=== PATIENT | male | born 1950 | race Caucasian/White ===

== ENCOUNTER 2017-06-02 19:07 | Emergency (ER) | payer MEDICARE, OTHER, SELFPAY ==
[2017-06-02 19:08] VITALS: BP 95/66; PULSE 70; RESP 17; TEMP 36.1; O2SAT 95; BMI 27.6
[2017-06-02 19:26] VITALS: BP 110/70; PULSE 82; RESP 14; O2SAT 99
--- NOTE | 2017-06-02 19:50 | CT_ITS ---
STUDY: CT ABDOMEN AND PELVIS WITHOUT CONTRAST REASON FOR EXAM: Male, 66 years old. Right abdominal pain RADIATION DOSAGE (If Supplied By Facility): CTDIvol = ( 10.24 ) mGy, DLP = ( 593.77 ) mGycm TECHNIQUE: Transaxial images were obtained from the lower chest to the upper thighs without oral contrast, and without intravenous contrast. Sagittal and coronal images were reconstructed. Individualized dose optimization techniques were used for this CT. COMPARISON: None. FINDINGS: There is minimal dependent atelectasis in both lung bases. There is no pleural effusion. The heart is normal in size. The liver is unremarkable. There are faint calcifications in the lumen of the gallbladder as well as a few round air foci in the lumen of the gallbladder. The spleen is unremarkable. The pancreas is unremarkable. The adrenal glands are unremarkable. The right kidney is unremarkable. There is no dilatation of the collecting system in the right kidney. The left kidney is unremarkable. There is no dilatation of the collecting system in the left kidney. The stomach is unremarkable. The small bowel is unremarkable. There are diverticula in the distal colon without adjacent stranding. The appendix is visualized and appears normal. There are minimal scattered vascular calcifications. The IVC is unremarkable. The retroperitoneum is unremarkable. There is no free fluid in the abdomen. There is a 3 cm cystic mass in the left pelvis adjacent to the bladder, probable diverticulum. The prostate is normal in size with coarse calcifications. The soft tissues are unremarkable. There are mild degenerative changes in the visualized spine. CT/Abdomen/Pelvis without Cont IMPRESSION: There are gallstones in the lumen of the gallbladder. There is no evidence of gallbladder wall thickening or surrounding inflammation by CT. There is mild diverticulosis of the distal colon. There are no acute bowel abnormalities. There is no ascites or significant lymphadenopathy. Electronically Signed: Oma Ludwig MD at 21:31 EST Tel Direct: [phone], Service support ,
[2017-06-02 20:03] LABS: Absolute Lymphocyte Count 2.75 X10^3/ul (0.83-4.51); Absolute Neutrophil Count 5.2 X10^3/uL (2.0-7.7); Basophil# 0.01 X10^3/uL; Basophil% 0.1 % (0-1); Eosinophil# 0.05 X10^3/uL; Eosinophils% 0.6 % (0-5); Hematocrit 49.3 % (40-54); Hemoglobin 17.1 g/dl (13.0-16.5); Lymphocyte # 2.75 X10^3/ul (4.0); Lymphocyte % 30.7 % (19-41); Mean Corp Hgb Conc 34.7 g/gl (32-36); Mean Corpuscular Hgb 30.2 pg (27.0-32.0); Mean Corpuscular Volume 87.1 fL (80-94); Monocyte# 0.94 X10^3/uL; Monocyte% 10.5 % (0-10); Neutrophil # 5.18 X10^3/uL (2.7-7.7); Neutrophil % 57.9 % (47-70); Platelet Count 235 K/mm3 (150-450); RBC Distribution Width CV 13.4 % (11.6-14.6); RBC Distribution Width SD 42.4 fl (35.1-43.9); Red Blood Count 5.66 M/mm3 (4.6-6.2)
[2017-06-02 20:04] LABS: POSITIVE COUNT NO; POSITIVE DIFFERENTIAL NO; POSITIVE MORPHOLOGY NO
[2017-06-02] MEDS: HYDROmorphone 1 MG/ML Syringe 0.5 MG IV ×2 (20:06→22:23)
[2017-06-02] MEDS: 0.9% Normal Saline 1,000 ML 150 ML IV (20:06)
[2017-06-02] MEDS: Ondansetron 4 MG/2 ML Vial IV ×2 (20:06→22:23)
[2017-06-02 20:16] LABS: AST(SGOT) 22 U/L (15-37); Alanine Aminotransfer ALT/SGPT 38 U/L (16-61); Alkaline Phosphatase 75 U/L (45-117); Anion Gap 9 (5-15); BUN 15 mg/dL (7-18); BUN/Creat Ratio 15.9 RATIO (10-20); Bilirubin, Direct 0.29 mg/dL (0.00-0.30); Calcium,Total 9.3 mg/dL (8.5-10.1); Chloride 103 mmol/L (98-107); Creatinine, Serum 0.94 mg/dL (0.70-1.30); EST Glomerular Filtration Rate 84 mL/min (>60); Est Glom Filt Rate - Afr Amer 102 mL/min (>60); Estimated Creatinine Clearance 89.89 ml/min; Globulin 3.4 g/dL (2.2-4.2); Glucose 141 mg/dL (74-106); Lipase 189 U/L (73-393); Potassium 3.9 mmol/L (3.5-5.1); Protein, Total 7.4 g/dL (6.4-8.2); Sodium Level 139 mmol/L (136-145)
[2017-06-02 21:03] LABS: Bacteria 0 SEEN /hpf (None Seen); Mucous, Urine 0 SEEN /hpf (<or=2+); Red Blood Cells-Urine 0 SEEN /hpf (0-5); Squamous Epithelial Cells - UA 0 SEEN /hpf (0-5)
[2017-06-02 21:07] LABS: Color, Urine Yellow (Yellow); Glucose, Dipstick Normal (Normal); Ketone-Dipstick 50 mg/dl (Negative); Leukocyte Esterase-Dipstick Negative /ul (Negative); Nitrite-Dipstick Negative (Negative); Occult Blood-Urine Negative /ul (Negative); Protein-Dipstick Negative (Negative); Specific Gravity, Urine 1.015 (1.002-1.030); Urine Bilirubin Dipstick Negative (Negative); Urine Clarity Clear (Clear); Urine Urobilinogen Normal (Normal)
[2017-06-02 21:14] LABS: White Blood Cells 0-5 SEEN /hpf (0-5)
--- NOTE | 2017-06-02 21:45 | US_ITS ---
STUDY: ABDOMINAL ULTRASOUND - RIGHT UPPER QUADRANT REASON FOR VISIT: Male, 66 years old. Right upper quadrant pain TECHNIQUE: Transverse and longitudinal imaging of the right upper quadrant was performed using real-time ultrasound. COMPARISON: CT abdomen and pelvis from the same day FINDINGS: Liver: The liver measures 15 cm. There is normal echogenicity of the liver. The direction of portal flow is hepatopetal. There is no demonstrated mass in the liver. Gallbladder: The gallbladder is normal in size. The gallbladder wall measures 2-3 mm. There is a negative sonographic Brooks's sign. There is no demonstrated pericholecystic fluid. There are numerous echogenic foci in the lumen of the gallbladder with posterior shadowing. Common Bile Duct (C.B.D.): The common bile duct measures 5.5 mm. Pancreas: The visualized pancreas is within normal limits. There is no demonstrated mass in the pancreas. Right Kidney: The right kidney measures 10.0 cm. The right cortex measures 1.5 cm. There is no demonstrated mass in the right kidney. There is no dilatation of the collecting system. There is no demonstrated free fluid. US/Gallbladder IMPRESSION: There are gallstones in the lumen of the gallbladder. The wall is not significantly thickened. There is no pericholecystic fluid. There is no biliary ductal dilatation. Electronically Signed: Oma Ludwig MD at 23:27 EST Tel Direct: [phone], Service support ,
[2017-06-02 21:54] VITALS: BP 105/70; PULSE 80; RESP 14; O2SAT 99
[2017-06-02 22:33] VITALS: BP 110/75; PULSE 85; RESP 14; O2SAT 98
--- NOTE | 2017-06-02 23:45 | ED.VISSUMM ---
- ER Visit Summary Date of Service: 06/02/17 Chief Complaint: Back pain and abdominal pain History of Present Illness: The patient is a 66 M who reportedly developed right-sided back pain while driving home from work. He ate a hamburger on arrival at home and worsened pain into the right upper quadrant. He does report some mild nausea. He denies history of kidney stones. He has had no difficulty with urinating. He denies chest pain or shortness of breath. Physical Examination: Vital signs are unremarkable. Patient has no fever. Patient is in no acute distress does appear uncomfortable. Head and neck examination is normal. Heart is regular rate and rhythm. Palpable pulses are noted throughout. Lungs are clear with good air movement throughout. Abdomen is soft with tenderness in the right upper quadrant. There is no guarding or rebound. Hypoactive bowel sounds are noted. Patient does have right CVA tenderness. Extremity examination is unremarkable with full range of motion. Neurologic examination reveals no focal deficits. Test Results: CBC reveals hemoglobin concentrated at 17.1. Chemistry studies are unremarkable. LFTs are significant only for total bili of 1.8. Lipase is normal. Urinalysis shows 50 ketones, but no sign of hematuria or infection. CT flank reveals evidence of gallstones. Mild diverticulosis is noted. Right upper quadrant ultrasound reveals gallstones in the lumen of the gallbladder. The wall is not thickened and there is no pericholecystic fluid or ductal dilatation. Emergency Department Course and Treatment: Patient was treated with Dilaudid, Zofran, and IV fluids. Test results were discussed with patient and at bedside. Patient is advised to follow bland diet. He will be given a short course [place] for home. He is to follow with his primary care physician for further testing including possible HIDA scan. Treatment Plan: [] Disposition: Discharge Impression: Right upper quadrant abdominal pain This note was generated with [employer] dictation software. It may contain incorrect words, spelling, and punctuation that were not noted in review of the chart prior to signing ED Disposition - Plan for ED Patient: Disposition: Home or Assisted Living Chief Complaint: Back Instructions: ED Abdominal Pain Unkn Cause Male Prescriptions: Hydrocodone Bitart/Apap 5-325 [[place] 5/325] 1 - 2 tablet PO Q6H PRN PRN 2 Days #12 tablet PRN Reason: Pain Referrals: Anastasia Hsu MD [Primary Care Provider] - 3-5 Days
--- NOTE | 2017-06-02 23:48 | DCINST.ED_ITS ---
ED Disposition - Plan for ED Patient: Disposition: Home or Assisted Living Chief Complaint: Back Instructions: ED Abdominal Pain Unkn Cause Male Prescriptions: Hydrocodone Bitart/Apap 5-325 [[place] 5/325] 1 - 2 tablet PO Q6H PRN PRN 2 Days # 12 tablet PRN Reason: Pain Referrals: Anastasia Hsu MD [Primary Care Provider] - 3-5 Days
[2017-06-03] MEDS: HYDROcodone Bitartrate/Apap 5/325 Tablet PO (00:03)
[2017-06-03 00:13] VITALS: BP 133/67; PULSE 69; RESP 16; O2SAT 100
== END 2017-06-03 00:14 | disposition home or self-care (01) ==
PROVIDERS: Emergency Provider Emergency Medicine; Family Provider Internal Medicine; PCP Internal Medicine
DX: R10.11 Right upper quadrant pain (principal); K80.20 Calculus of gallbladder without cholecystitis without obstruction; K57.90 Diverticulosis of intestine, part unspecified, without perforation or abscess without bleeding; R11.0 Nausea
CPT/HCPCS: 74176; 76705; 80048; 80076; 81001; 83690; 85025; 96361; 96374; 96375; 96376; 99283; J7030; A4216; J2405

== ENCOUNTER → 2017-06-13 11:30 | Outpatient (CLI) | payer MEDICARE, OTHER, SELFPAY ==
--- NOTE | 2017-06-13 11:34 | NM_ITS ---
CLINICAL: 66-year-old male with history of right upper quadrant abdominal pain and cholelithiasis. RADIONUCLIDE HEPATOBILIARY SCINTIGRAPHY COMPARISON: Abdominal ultrasound and CT of the abdomen-pelvis reports 06/02/2017 FINDINGS: Following the intravenous administration of 5.3 mCi of 99m Tc Mebrofenin, hepatobiliary images reveal: 1. Relatively prompt and homogeneous radiopharmaceutical concentration is noted by a normal sized liver. No parenchymal defects are identified. 2. Gallbladder activity is not identified during 60 minutes of sequential imaging. Gallbladder activity is identified at 120 minutes post radiopharmaceutical provision which correlates with the anatomic positioning of the gallbladder on review of coronal reconstructions of CT of the abdomen and pelvis dated 06/02/2017. 3. Small intestinal tract is observed at 30 minutes post radiopharmaceutical administration. 4. Washout of the radiopharmaceutical by the hepatic parenchyma appears qualitatively normal. NM/Hepatobilliary Imaging IMPRESSION: 1. Nonvisualization of the gallbladder at 60 minutes post-radiopharmaceutical administration with visualization noted at 120 minutes post tracer provision is most consistent with a component of chronic cholecystitis in patients who have fasted for more than 4 and less than 24 hours, with an intermediate to high pretest probability of hepatobiliary illness and retained normal hepatocellular function. (Rox and Riya Robles, J Nucl Med 21: P17, 1980). Electronically Signed: Bernabe Ferraro DO at 14:11 EST Tel , Service support ,
== END ==
PROVIDERS: Family Provider Internal Medicine; PCP Internal Medicine; Visit Provider Internal Medicine
DX: K80.20 Calculus of gallbladder without cholecystitis without obstruction (principal); R10.11 Right upper quadrant pain
CPT/HCPCS: 78226; A9537

== ENCOUNTER 2017-06-25 17:17 | Inpatient (IN) | payer MEDICARE, OTHER, SELFPAY ==
[2017-06-25] VITALS (9 sets, daily range): BP systolic 93–137; BP diastolic 61–80; PULSE 65–95; RESP 14–16; TEMP 36.1–36.6; O2SAT 93–97; BMI 26.4; BMI 26.5; BMI 27.4
--- NOTE | 2017-06-25 12:04 | EKG12_ITS ---
Test Reason : PRE OP Blood Pressure : / mmHG Vent. Rate : 063 BPM Atrial Rate : 063 BPM P-R Int : 190 ms QRS Dur : 096 ms QT Int : 400 ms P-R-T Axes : 038 041 028 degrees QTc Int : 409 ms Sinus rhythm with occasional Premature ventricular complexes Otherwise normal ECG No previous ECGs available Confirmed by JEMIMA DE LA GARZA, KAYCEE ([id number]), assistant film editor RAKAN MERAZ ([id number]) on 06/27/2017 3:28:09 PM Referred By: Dinesh Vanegas Confirmed By:KAYCEE ONOFRE MD
--- NOTE | 2017-06-25 14:05 | GALL_PTH ---
PATIENT: SABINO MENDOZA Jr. LOC: [facility]3 U#:[id number] AGE/SX: 66/M ROOM: [facility]316 RE06/26/[address]: Dr. Sabino Vanegas MD : [id number] BED: 1 DIS: 06/28/2017 SPEC #: [id number] RECD: 06/26/17 08:36 STATUS: BIJAL ZAPATA #: [id number] KARLEE: 06/25/17 14:[address]: Sabino Vanegas DEPT: SURGICAL PATHOLOGY RECD BY: Vasyl Delcid ENTERED: 06/26/17 09:02 SP TYPE: GALLBLLORI CHAPA DR: MD Dr. Ventura Mata MD Chitra Ganta, MD Tissues: Gallbladder, NOS Procedures: Surgery Specimen Level III HEADER OPERATION: Laparoscopic cholecystectomy with IOC PRE-OP DIAGNOSIS: Chronic cholecystitis with calculus TISSUE SUBMITTED: Gallbladder MICROSCOPIC DIAGNOSIS Gallbladder, cholecystectomy: Acute and chronic cholecystitis. AM:katja 06/27/17 MICROSCOPIC DESCRIPTION Slides are reviewed. GROSS DESCRIPTION Received is one container labeled with the patient's name and designated gallbladder. The specimen consists of a previously opened distorted gallbladder. The specimen measures 7 x 4 x 1.5 cm. The serosal surface is congested and hemorrhagic. No obvious cystic duct is identified. The identified portion of the lumen shows mucosal surface without any mass lesion. No stones are identified. No bile is identified. Sections of gallbladder wall reveals congested and hemorrhagic cut surfaces. Also present in the container are multiple fragments of detached pieces of hemorrhagic tissue measuring in aggregate 3 x 3 x 1 cm. The gallbladder wall measures up to 1.5 cm in thickness. Mobile Development Manager sections are submitted in three cassettes. / SJ:katja 06/26/17 TC:2 CPT: 14124
--- NOTE | 2017-06-25 14:14 | PCM.DC.GS ---
Discharge Diet: Light diet - advance as tolerated - if you have questions about your diet instructions, please talk to you doctor. Discharge Activity: May Not Drive - for 1 week or while taking narcotic pain medicine. May shower in (days): 1 Lifting Restrictions: 10 pounds Call your doctor if your incision/area has: Continuous Slow Oozing, Sudden Increased Bleeding, Increased Pain/ Swelling, Increased Redness, Foul Smelling Discharge Call your doctor if you observe: Fever of 101 or Higher Suture Line Care: Avoid Pulling/Pushing, Avoid Pinching/Bending Additional Dressing/Incision Instructions:: Change or remove dressing in 2 days. Leave steri-strips in place for 1 week. Empty, measure and record ISABEL output. Please cleanse the drain site daily with a qtip and peroxide and apply dry gauze and tape Allergies/Adverse Reactions: Allergies No Known Allergies Allergy (Verified 06/24/17 09:34) Medications to take at Discharge Hydrocodone Bitart/Apap 5-325 [[place] 5/325] 1 - 2 tab PO Q6H PRN PRN 2 Days #12 tab 06/02/17 ascorbic acid (vitamin C) 500 mg tablet 1 g PO QDAY tab 06/23/17 calcium phosphate 250 mg-vitamin D3 400 unit chewable tablet 1 tab PO QDAY 06/23/17 naproxen sodium 220 mg capsule 220 mg PO .prn PRN cap 06/23/17 Primary Care Physician: Anastasia Hsu MD [Primary Care Provider] - Please Follow Up With: Dinesh Vanegas MD - [phone] When: Call to make an appointment to be seen on Friday
[2017-06-25] MEDS: Cefazolin 2 GM in 0.9% Normal Saline 100 ML IV (14:21)
[2017-06-25] MEDS: Bupivacaine Mpf 0.5% 30 ML VIAL (17:10)
--- NOTE | 2017-06-25 17:29 | OP.PCM_ITS ---
Problem List (1) Chronic cholecystitis with calculus Status: Acute Report of Operation Date of Procedure: 06/25/17 Pre-Operative Diagnosis: Chronic cholecystitis cholelithiasis Post-Operative Diagnosis: Severe chronic cholecystitis cholelithiasis Surgery/Procedure Performed:: Laparoscopic cholecystectomy with drainage and fenestration Description of Surgical Findings:: Timeout and informed consent was obtained. 66-year-old gentleman was taken to the operating room. He was placed supine on the table. He underwent general endotracheal intubation anesthesia. Ancef 2 g are given intravenously preoperatively. The abdomen was sterilely prepped and draped. 0.5% Marcaine was used as local anesthetic. Throughout the procedure total 30 cc was used. Skin sites were pre-anesthetized. A vertical incision was made in the inferior portion of the umbilicus was inserted after holding sutures of 0 Vicryl placed. The abdomen was insufflated CO2 to a pressure of 10 mmHg pressure. 12 m trocar inserted. 10 lap scope inserted. No evidence of any trocar injuries. The mid and lower abdomen was not remarkable. The upper abdomen demonstrated thick cake of omentum completely obstructing view to the gallbladder. Five- minute trochars are placed in the epigastric mid abdomen right upper quadrant and additional trocar throughout the case was placed in the right upper quadrant. The omentum was tediously dissected free in part from the gallbladder leaving a portion and tach. Hemostasis obtained with electrocautery. The gallbladder was extraordinarily thick walled and tense. Attempt was made to aspirate the gallbladder. No fluid could be obtained. Initially the omentum was dissected free the infundibular area could not be cleanly identified and so then I approached the gallbladder and a dome down technique even this was extraordinarily difficult. I used hook cautery to dissect the dome of the gallbladder. Immediately got into the gallbladder. The posterior wall the gallbladder was densely adherent to the liver. I remove stones in place that in retrieval athletics. I finally was able to dissect free the posterior wall of the gallbladder continuing down toward the infundibular area. Throughout hemostasis obtained with electrocautery and hemoclips were indicated. I finally then was able to completely open the gallbladder I used a stone forceps to remove all of the stones I was looking at the base the gallbladder was no stones spillage and there was no retrograde flow of bile. I still however could not clearly identify ductal structures and so I elected not to perform any type of ligation or stapling of the base of the gallbladder. I excised as much of the gallbladder and a subtotal technique as possible. I then saw the cystic artery and secured that with Hem-o-jazmin clips. A few metal clips were needed. I used electrocautery to cauterize the edge of the markedly thickened gallbladder wall and used cautery to cauterize what I could of the mucosa remaining within the gallbladder. Having achieved that then placed the gallbladder remnants in retrieval bag. The right upper quadrant was copiously irrigated and aspirated free of fluid. The liver bed was inspected it was noted to be hemostatic. The subtotal cholecystectomy was noted to be hemostatic. I trimmed a 15 round ISABEL drain to length and then placed it through the epigastric port and exited through the right upper quadrant port. I placed the drain to the subhepatic space. I secured the drain with interrupted 3-0 nylon. The gallbladder was then removed through the umbilicus fascial enlargement was required. The remaining trochars removed and visualization. Hemostasis was intact. The abdomen was allowed to deflate of CO2. The fascia in the umbilicus approximated with 2 [id number] sutures of 0 Vicryl. Skin edges approximated up to 4 Monocryl subdermal stitches. Steri-Strips Telfa and OpSite dressings applied. Sponge instrument and needle counts were reported the surgeon be correct. Blood loss was approximately 200 cc. He tolerated procedure well was taken to recovery area in satisfactory condition. This was technically an extraordinarily difficult procedure excess time of surgery that required 2-1/2 hours. Dinesh Vanegas M.D., F.A.C.S. Type of Anesthesia:: General Anesthesiologist: Simon Veliz
[2017-06-25] MEDS: Lactated Ringers 1,000 ML 80 ML IV (18:58)
[2017-06-25] MEDS: HYDROcodone Bitartrate/Apap 5/325 Tablet PO (20:51)
[2017-06-25] MEDS: Cefazolin 1 GM/50 ML BAG IV (23:00)
[2017-06-26] MEDS: LORazepam 2 MG/ML Syringe 0.5 MG IV (00:03)
--- NOTE | 2017-06-26 02:26 | NURSING ---
Pt had an episode where he was found by AURELIANO Keene walking in the hallway pulling IV pole with blood from IV spotting the floor. Taken back to room. This RN notified. Assessed ISABEL drain, small amount of tubing pulled out. IV site leaking fluid, flushed and applied new tegederm.
[2017-06-26 03:36] VITALS: BP 147/94; PULSE 96; RESP 14; TEMP 36.6; O2SAT 93
--- NOTE | 2017-06-26 06:05 | PCM.PN.SRG ---
Subjective: Pt painful RUQ and epigastrium No flatus - Physical Exam General: Alert Abdomen: Bowel Sounds Not Present, Distended, Tender, - - ISABEL active bloody drainage Vital Signs Temp Pulse Resp BP Pulse Ox 97.9 F 96 14 147/94 H 93 06/26/17 03:36 06/26/17 03:36 06/26/17 03:36 06/26/17 03:36 06/26/17 03:36 Oxygen Delivery Method Room Air Weight: 219 lb 12.814 oz Body Mass Index (BMI) 27.4 Intake and Output for Last 24 Hours 06/24/17 06/25/17 06/26/17 23:59 23:59 23:59 Intake Total 1800 / 1800 639 / 639 Output Total 60 / 60 200 / 200 Balance 1740 / 1740 439 / 439 Assessment/Plan Difficult to determine if bile in the ISABEL but I am suspicious it is Await labs but will consult Dr Mccurdy. I have already spoken with him yesterday about the potential
[2017-06-26] MEDS: Acetaminophen/Codeine #3 Tablet PO (06:27)
[2017-06-26] MEDS: Cefazolin 1 GM/50 ML BAG IV (06:28)
[2017-06-26] MEDS: Lactated Ringers 1,000 ML 80 ML IV (06:28)
[2017-06-26 06:53] LABS: Absolute Lymphocyte Count 0.88 X10^3/ul (0.83-4.51); Absolute Neutrophil Count 10.1 X10^3/uL (2.0-7.7); Hematocrit 45.4 % (40-54); Hemoglobin 15.7 g/dl (13.0-16.5); Lymphocyte # 0.88 X10^3/ul (4.0); Lymphocyte % 7.4 % (19-41); Mean Corp Hgb Conc 34.6 g/gl (32-36); Mean Corpuscular Volume 86.8 fL (80-94); Mean Platelet Vol. 8.7 fl (6.2-12.0); Monocyte# 0.93 X10^3/uL; Monocyte% 7.8 % (0-10); Neutrophil # 10.09 X10^3/uL (2.7-7.7); Neutrophil % 84.6 % (47-70); Platelet Count 317 K/mm3 (150-450); RBC Distribution Width CV 12.9 % (11.6-14.6); RBC Distribution Width SD 40.8 fl (35.1-43.9); Red Blood Count 5.23 M/mm3 (4.6-6.2); White Blood Count 11.9 K/mm3 (4.4-11.0)
[2017-06-26 06:54] LABS: POSITIVE COUNT NO; POSITIVE DIFFERENTIAL NO; POSITIVE MORPHOLOGY NO
[2017-06-26 07:23] LABS: AST(SGOT) 79 U/L (15-37); Alanine Aminotransfer ALT/SGPT 91 U/L (16-61); Albumin, Serum 3.4 g/dL (3.2-5.0); Alkaline Phosphatase 121 U/L (45-117); Bilirubin, Direct 0.47 mg/dL (0.00-0.30); Globulin 3.3 g/dL (2.2-4.2); Protein, Total 6.7 g/dL (6.4-8.2)
--- NOTE | 2017-06-26 08:08 | NM_ITS ---
CLINICAL: 66-year-old male with history of recent cholecystectomy with postoperative pain and suspected bile leak. RADIONUCLIDE HEPATOBILIARY SCINTIGRAPHY COMPARISON: CT of the abdomen-pelvis 06/13/2017, previous Tc mebrofenin hepatobiliary scintigraphy study dated 06/13/2017 FINDINGS: Following the intravenous administration of 6.0 mCi of 99m Tc Mebrofenin, hepatobiliary images reveal: 1. Relatively prompt and homogeneous radiopharmaceutical concentration is noted by a normal sized liver. No parenchymal defects are identified. 2. There is activity identified in the region of the gallbladder fossa at approximately 33-34 minutes post tracer injection. 3. Small intestinal tract is observed at 22 minutes post radiopharmaceutical administration. 4. Washout of the radiopharmaceutical by the hepatic parenchyma appears qualitatively delayed. NM/Hepatobilliary Imaging IMPRESSION: 1. There is visualization of the gallbladder fossa consistent with bile leak. 2. 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 3. Overall compared to the previous Tc mebrofenin hepatobiliary imaging study dated 06/13/2017, there is interim development of hepatocellular-polygonal cell dysfunction and an apparent bile leak into the gallbladder fossa status post interval cholecystectomy. N.B. : Dr. Dinesh Vanegas, Covering Physician, confirmed on 06/26/2017 13:11:48 (ET) that the referring physician received the results and did not require a verbal consultation. Electronically Signed: Bernabe Ferraro DO at 12:33 EST Tel , Service support , N.B. : Dr. Dinesh Vanegas, Covering Physician, confirmed on 06/26/2017 13:11:48 (ET) that the referring physician received the results and did not require a verbal consultation.
[2017-06-26 09:36] VITALS: BP 127/83; PULSE 92; RESP 14; TEMP 36.9; O2SAT 94
--- NOTE | 2017-06-26 11:03 | PCA ---
pt off floor
--- NOTE | 2017-06-26 11:29 | NURSING ---
1025-pt off unit via bed for hida scan
[2017-06-26] MEDS: Tamsulosin HCl 0.4 MG Capsule PO ×2 (13:00→18:12)
--- NOTE | 2017-06-26 14:10 | PCM.CONS.B ---
- Consult Date of Consult: 06/26/17 Reason for consultation: Patient has a cystic duct leak The patient is a [the 66] year old [male] who I have been asked to consult. This is a 66-year-old male who reports abdominal pain about 4 weeks ago. Tenured pain and discomfort he was seen by his family doctor previously had a CAT scan and ultrasound which showed gallstones. The patient had a HIDA scan which apparently showed chronic cholecystitis. Seen by Dr. Puente and recommended surgery. He underwent surgery yesterday and had a significantly chronically inflamed gallbladder anatomy was not visible open procedure. Today the patient underwent a HIDA scan which showed extravasation of the stent with a bile duct leak. Had some abdominal pain but otherwise is feeling better no fever chills or night sweats. Not smoke or drink he has been in relatively good health over the years. Otherwise patient denies any heart disease chest pains review of systems is noted with a meal with no other complaints. Allergies: Allergies No Known Allergies Allergy (Verified 06/24/17 09:34) Medications: Medications Added to Medication List This Visit Category Date Time Status Enoxaparin [Lovenox] Med 06/26/17 10:00 Active 40 mg SC DAILY@1000 Ensure Enlive Med 06/26/17 10:00 Active 120 ml PO 4X/DAY Tamsulosin HCl [Flomax] Med 06/26/17 17:30 Active 0.4 mg PO DAILY@1730 PMH: He denies hypertension or diabetes PSH: Recent laparoscopic cholecystectomy Social: No smoke or drink ROS: As noted in the HPI Vital Signs Height 6 ft 3 in Weight: 99.7 kg Weight in Pounds 219.8 lbs Pulse Ox 94 Temperature 98.5 F Pulse Rate 92 Respiratory Rate 14 Blood Pressure 127/83 Blood Pressure Position Semi-Fowlers Vitals: HEENT anicteric sclera conjunctiva pink NECK: Supple HEART: S1-S2 no murmur LUNGS: Equal breath sounds bilaterally ABDOMEN: Slight distention decreased bowel sounds tenderness on palpation EXTER: No edema Neuro: Alert and oriented no deficits Impression: This is a 66-year-old male with chronic cholecystitis and significant inflammation in the gallbladder fossa open procedure was performed yesterday P ART of the gallbladder removed. HIDA scan showing a cystic duct leak. Slight elevation of liver enzymes post surgery she will undergo an ERCP tomorrow sphincterotomy and stent insertion been explained in detail to the patient and his this afternoon agreeable to the plan
[2017-06-26 15:00] VITALS: BP 150/83; PULSE 64; RESP 16; TEMP 36.8; O2SAT 93
[2017-06-26] MEDS: Enoxaparin 40 MG/0.4 ML Syringe SC (15:23)
[2017-06-26 20:20] VITALS: BP 129/75; PULSE 93; RESP 16; TEMP 37.2; O2SAT 97
[2017-06-26] MEDS: Dextrose 5%-Lactated Ringers 1,000 ML 150 ML IV (20:20)
[2017-06-26] MEDS: 0.9% NaCl Peripheral Flush Adult/Peds IV (22:25)
[2017-06-27] VITALS (7 sets, daily range): BP systolic 95–120; BP diastolic 63–81; PULSE 89–124; RESP 16–18; TEMP 36.7–37.2; O2SAT 92–95; BMI 27.4
[2017-06-27] MEDS: Dextrose 5%-Lactated Ringers 1,000 ML 150 ML IV ×4 (00:15→17:08)
[2017-06-27] MEDS: LORazepam 2 MG/ML Syringe 0.5 MG IV (02:33)
[2017-06-27] MEDS: 0.9% NaCl Peripheral Flush Adult/Peds IV ×3 (02:34→20:24)
--- NOTE | 2017-06-27 05:40 | PCM.PN.SRG ---
Subjective: Hida scan c/w bile leak from GB fenestration ISABEL has decreased flow - Physical Exam Abdomen: Soft, Non Tender Vital Signs Temp Pulse Resp BP Pulse Ox 98.8 F 89 16 120/81 H 94 06/27/17 02:20 06/27/17 02:20 06/27/17 02:20 06/27/17 02:20 06/27/17 02:20 Oxygen Delivery Method Room Air Weight: 219 lb 12.814 oz Body Mass Index (BMI) 27.4 Intake and Output for Last 24 Hours 06/25/17 06/26/17 06/27/17 23:59 23:59 23:59 Intake Total 1800 / 1800 2470 / 2470 1261 / 1261 Output Total 60 / 60 2977 / 2977 717 / 717 Balance 1740 / 1740 -507 / -507 544 / 544 Microbiology Past 72 Hours 06/25/17 17:15 Gram Stain - Final Tissue - Aerobic & Anaerobic Swabs Wound Culture - Preliminary No growth aerobically. Laboratory Tests Past 24 Hrs 06/26/17 06/26/17 06:40 06:40 WBC 11.9 H RBC 5.23 Hgb 15.7 Hct 45.4 MCV 86.8 MCH 30.0 MCHC 34.6 RDW 12.9 RDW Differential 40.8 Plt Count 317 MPV 8.7 Immature Gran % (Auto) 0.200 Neut % (Auto) 84.6 H Lymph % (Auto) 7.4 L [place] % (Auto) 7.8 Eos % (Auto) 0.0 Baso % (Auto) 0.0 Absolute Neuts (auto) 10.1 H Absolute Lymphs (auto) 0.88 Total Counted Not Reportable Total Bilirubin 2.80 H Direct Bilirubin 0.47 H AST 79 H ALT 91 H Alkaline Phosphatase 121 H Total Protein 6.7 Albumin 3.4 Globulin 3.3 Assessment/Plan I suspect the ISABEL is no longer placed subhepatically because drainage has decreased Bile leak anticipated b/o type of procedure performed with fenestration of the GB and no ligation Pt for ERCP today
[2017-06-27 06:47] LABS: Absolute Lymphocyte Count 1.19 X10^3/ul (0.83-4.51); Absolute Neutrophil Count 5.6 X10^3/uL (2.0-7.7); Basophil# 0.01 X10^3/uL; Basophil% 0.1 % (0-1); Eosinophil# 0.04 X10^3/uL; Eosinophils% 0.5 % (0-5); Hematocrit 42.1 % (40-54); Hemoglobin 14.2 g/dl (13.0-16.5); Lymphocyte # 1.19 X10^3/ul (4.0); Lymphocyte % 15.9 % (19-41); Mean Corp Hgb Conc 33.7 g/gl (32-36); Mean Corpuscular Hgb 29.5 pg (27.0-32.0); Mean Corpuscular Volume 87.5 fL (80-94); Mean Platelet Vol. 8.9 fl (6.2-12.0); Monocyte# 0.67 X10^3/uL; Neutrophil # 5.55 X10^3/uL (2.7-7.7); Neutrophil % 74.4 % (47-70); Platelet Count 245 K/mm3 (150-450); RBC Distribution Width CV 13.2 % (11.6-14.6); RBC Distribution Width SD 41.8 fl (35.1-43.9); Red Blood Count 4.81 M/mm3 (4.6-6.2); White Blood Count 7.5 K/mm3 (4.4-11.0)
[2017-06-27 06:50] LABS: POSITIVE COUNT NO; POSITIVE DIFFERENTIAL NO; POSITIVE MORPHOLOGY NO
[2017-06-27 07:06] LABS: AST(SGOT) 92 U/L (15-37); Alanine Aminotransfer ALT/SGPT 115 U/L (16-61); Alkaline Phosphatase 131 U/L (45-117); Globulin 2.9 g/dL (2.2-4.2); Protein, Total 5.9 g/dL (6.4-8.2)
--- NOTE | 2017-06-27 11:25 | CASEMGMT ---
RN OSVALDO Face to Face with patient for initial transition planning/care coordination assessment. RN CM introduced self and role at [facility]. Patient lying in bed, alert and oriented. Patient willing to participate in assessment and is able to answer all questions appropriately. Care providers, pharmacy, and demographics verified. See link attached. Patient wishes to discharge home, denies need for home health at this time. Patient states he has no further needs or concerns at this time. CM to follow for discharge planning needs that may arise. Disposition Plan: Patient to discharge home with family support and follow-up plans in place.
--- NOTE | 2017-06-27 14:25 | NURSING ---
Report called to Perla in AC.
--- NOTE | 2017-06-27 14:26 | NURSING ---
Pt. off the floor for ERCP.
--- NOTE | 2017-06-27 16:08 | RAD_ITS ---
STUDY: ERCP CHOLANGIOGRAM. REASON FOR EXAM: Male, 66 years old. Gallbladder disease. FLUOROSCOPY TIME (if supplied): (153.6) minutes/seconds TECHNIQUE: 5 fluoroscopic views. COMPARISON: None. FINDINGS: ERCP canalization of the common bile duct. Contrast filling demonstrates a normal common duct, common hepatic duct and intrahepatic branches without a filling defect. RAD/O.R. Fluoro for C-Arm IMPRESSION: Normal ERCP cholangiogram. Electronically Signed: Evy Alexander MD at 17:47 EST , Service support ,
--- NOTE | 2017-06-27 16:08 | RAD_ITS ---
STUDY: ERCP CHOLANGIOGRAM. REASON FOR EXAM: Male, 66 years old. Gallbladder disease. FLUOROSCOPY TIME (if supplied): (153.6) minutes/seconds TECHNIQUE: 5 fluoroscopic views. COMPARISON: None. FINDINGS: ERCP canalization of the common bile duct. Contrast filling demonstrates a normal common duct, common hepatic duct and intrahepatic branches without a filling defect. RAD/ERCP Biliary Only IMPRESSION: Normal ERCP cholangiogram. Electronically Signed: Evy Alexander MD at 17:47 EST , Service support ,
--- NOTE | 2017-06-27 16:50 | PCM.CONS.B ---
- Consult Date of Consult: 06/27/17 - Reason for Consult Preop diagnosis: Patient with bile duct leak Postop diagnosis: ERCP with sphincterotomy and insertion of a 10/7 stent Anesthesia: General anesthesia Instrument: Olympus duodenoscope Informed consent was taken prior to procedure. The patient was brought to the operating room suite[ he] was [employer]. . Anesthesia provided general anesthesia. The scope was passed under direct visualization down into the esophagus. The scope was advanced into the stomach is bile in the stomach the scope was advanced to the second portion of the duodenum where the major ampulla was identified. Using a sphincterotome and a guidewire under fluoroscopy the wire was placed initially into the pancreatic duct. No contrast was injected. Under fluoroscopy the wire was then pushed up into the common bile duct contrast was injected there was immediate filling of the common bile duct. There appeared to be some extravasation in the area of the cystic duct. The patient was grounded and a small sphincterotomy was performed. The sphincterotome was withdrawn off of the guidewire a 10/7 stent was placed over the guidewire and under fluoroscopy was placed up into the common bile duct. There was immediate drainage of a large amount of bile there are even some small stones draining. At this point under fluoroscopy the stent was in acceptable position just below the cystic duct. Impression: Probable cystic duct leak status post sphincterotomy and insertion of a 10/7 stent Plan: Leave stent in place for approximately 8 weeks repeat cholangiogram at that time. Cc copy Dr. Dinesh Vanegas CC Dr. Hsu
[2017-06-27] MEDS: Tamsulosin HCl 0.4 MG Capsule PO (18:01)
--- NOTE | 2017-06-27 18:48 | PN.SURG_ITS ---
Subjective: Successful ERCP - Physical Exam Vital Signs Temp Pulse Resp BP Pulse Ox 98.0 F 103 H 16 95/67 92 06/27/17 17:40 06/27/17 17:40 06/27/17 17:40 06/27/17 17:40 06/27/17 17:40 Oxygen Delivery Method Room Air Weight: 219 lb 12.814 oz Body Mass Index (BMI) 27.4 Intake and Output for Last 24 Hours 06/25/17 06/26/17 06/27/17 23:59 23:59 23:59 Intake Total 1800 / 1800 2470 / 2470 3909 / 3909 Output Total 60 / 60 2977 / 2977 1335 / 1335 Balance 1740 / 1740 -507 / -507 2574 / 2574 Microbiology Past 72 Hours 06/25/17 17:15 Gram Stain - Final Tissue - Aerobic & Anaerobic Swabs Wound Culture - Preliminary No growth-Final to follow Anaerobic Culture - Preliminary No growth in 48 hours. Laboratory Tests Past 24 Hrs 06/27/17 06/27/17 05:55 05:55 WBC 7.5 RBC 4.81 Hgb 14.2 Hct 42.1 MCV 87.5 MCH 29.5 MCHC 33.7 RDW 13.2 RDW Differential 41.8 Plt Count 245 MPV 8.9 Immature Gran % (Auto) 0.100 Neut % (Auto) 74.4 H Lymph % (Auto) 15.9 L Stephenson % (Auto) 9.0 Eos % (Auto) 0.5 Baso % (Auto) 0.1 Absolute Neuts (auto) 5.6 Absolute Lymphs (auto) 1.19 Total Counted Not Reportable Total Bilirubin 2.80 H Direct Bilirubin 0.50 H AST 92 H ALT 115 H Alkaline Phosphatase 131 H Total Protein 5.9 L Albumin 3.0 L Globulin 2.9 Assessment/Plan Hopeful discharge tomorrow
[2017-06-28 02:57] VITALS: BP 107/62; PULSE 86; RESP 16; TEMP 36.8; O2SAT 95
[2017-06-28] MEDS: Acetaminophen/Codeine #3 Tablet PO ×2 (03:07→12:18)
[2017-06-28 09:58] VITALS: BP 121/78; PULSE 85; RESP 18; TEMP 36.7; O2SAT 95
--- NOTE | 2017-06-28 10:34 | PCM.PN.SRG ---
Subjective: Tolerating p.o. no nausea or vomiting Objective: Abdomen is soft dressings are dry minimal ISABEL output all serous in nature - Physical Exam Vital Signs Temp Pulse Resp BP Pulse Ox 98.1 F 85 18 121/78 H 95 06/28/17 09:58 06/28/17 09:58 06/28/17 09:58 06/28/17 09:58 06/28/17 09:58 Oxygen Delivery Method Room Air Weight: 219 lb 12.814 oz Body Mass Index (BMI) 27.4 Intake and Output for Last 24 Hours 06/26/17 06/27/17 06/28/17 23:59 23:59 23:59 Intake Total 2470 / 2470 4444 / 4444 200 / 200 Output Total 2977 / 2977 2262 / 2262 309 / 309 Balance -507 / -507 2182 / 2182 -109 / -109 Microbiology Past 72 Hours 06/25/17 17:15 Gram Stain - Final Tissue - Aerobic & Anaerobic Swabs Wound Culture - Preliminary No growth-Final to follow Anaerobic Culture - Preliminary No growth in 48 hours. Assessment/Plan We will discharge the patient home today. Patient will follow up with Dr. Puente on Friday for drain removal.
--- NOTE | 2017-06-28 10:35 | PCM.DC.GB ---
Discharge Diet: Light diet - advance as tolerated - if you have questions about your diet instructions, please talk to you doctor. Discharge Activity: May Not Drive - for 1 week or while taking narcotic pain medicine. May shower in (days): 1 Additional Activity Instructions:: Pain medication may cause nausea. You should typically eat light foods as you take your pain medications. Pain medication may also cause constipation. If this is a problem for you, please discuss with your doctor. Call your doctor if your incision/area has: Continuous Slow Oozing, Sudden Increased Bleeding, Increased Pain/ Swelling, Increased Redness, Foul Smelling Discharge Call your doctor if you observe: Fever of 101 or Higher Suture Line Care: Avoid Pulling/Pushing, Avoid Pinching/Bending Additional Dressing/Incision Instructions:: Change or remove dressing in 2 days. Leave steri-strips in place for 1 week. Empty, measure and record ISABEL output. Please cleanse the drain site daily with a qtip and peroxide and apply dry gauze and tape Allergies/Adverse Reactions: Allergies No Known Allergies Allergy (Verified 06/24/17 09:34) Medications to take at Discharge Hydrocodone Bitart/Apap 5-325 [[place] 5/325] 1 - 2 tab PO Q6H PRN PRN 2 Days #12 tab 06/02/17 ascorbic acid (vitamin C) 500 mg tablet 1 g PO QDAY tab 06/23/17 calcium phosphate 250 mg-vitamin D3 400 unit chewable tablet 1 tab PO QDAY 06/23/17 naproxen sodium 220 mg capsule 220 mg PO .prn PRN cap 06/23/17 Hydrocodone Bitart/Apap 5-325 [[place] 5MG-325MG] 1 tablet PO Q6H PRN PRN 4 Days #10 tablet 06/27/17 The following prescriptions were given: Hydrocodone Bitart/Apap 5-325 [[place] 5MG-325MG] 1 tablet PO Q6H PRN PRN 4 Days #10 tablet PRN Reason: Pain Primary Care Physician: Anastasia Hsu MD [Primary Care Provider] - Please Follow Up With: Jerardo Foy MD - Please call [phone] to schedule an appointment. When: 7 days after your surgery.
[2017-06-28 12:51] VITALS: BP 105/53; PULSE 89; RESP 18; TEMP 36.8; O2SAT 95
== END 2017-06-28 13:06 | disposition home or self-care (01) | DRG 357 ==
LOC: SDC 06-26 06:04
PROVIDERS: Internal Medicine Gastroenterology; Admitting Provider Surgery; Family Provider Internal Medicine; PCP Internal Medicine; Visit Provider Surgery
PROC: (CPT 47610; principal; 2017-06-25 13:45)
PROC: 0F798DZ Dilation of Common Bile Duct with Intraluminal Device, Via Natural or Artificial Opening Endoscopic (ICD-10-PCS; CPT 43260; principal; 2017-06-27 15:00)
DX: K91.89 Other postprocedural complications and disorders of digestive system (principal); K80.10 Calculus of gallbladder with chronic cholecystitis without obstruction
CPT/HCPCS: 36415; 74328; 76000; 78226; 80076; 85025; 87070; 87075; 87205; 88304; 93005; 97802; A9537; J3010; J7120; A4216; J1610

== ENCOUNTER → 2017-07-17 15:11 | Outpatient (CLI) | payer MEDICARE, OTHER, SELFPAY ==
[2017-07-17 17:49] LABS: Absolute Lymphocyte Count 1.53 X10^3/ul (0.83-4.51); Basophil# 0.01 X10^3/uL; Basophil% 0.2 % (0-1); Hematocrit 46.3 % (40-54); Hemoglobin 15.7 g/dl (13.0-16.5); Lymphocyte # 1.53 X10^3/ul (4.0); Lymphocyte % 29.9 % (19-41); Mean Corp Hgb Conc 33.9 g/gl (32-36); Mean Corpuscular Hgb 29.7 pg (27.0-32.0); Mean Corpuscular Volume 87.7 fL (80-94); Monocyte# 0.46 X10^3/uL; Neutrophil % 58.7 % (47-70); Platelet Count 283 K/mm3 (150-450); RBC Distribution Width CV 14.3 % (11.6-14.6); RBC Distribution Width SD 45.7 fl (35.1-43.9); Red Blood Count 5.28 M/mm3 (4.6-6.2); White Blood Count 5.1 K/mm3 (4.4-11.0)
[2017-07-17 18:07] LABS: POSITIVE COUNT NO; POSITIVE DIFFERENTIAL NO; POSITIVE MORPHOLOGY NO
[2017-07-17 18:14] LABS: ALB/GLOB Ratio 1.3 RATIO (0.9-2.4); AST(SGOT) 26 U/L (15-37); Alanine Aminotransfer ALT/SGPT 38 U/L (16-61); Alkaline Phosphatase 85 U/L (45-117); Anion Gap 7 (5-15); BUN 15 mg/dL (7-18); BUN/Creat Ratio 20.5 RATIO (10-20); Calcium,Total 9.3 mg/dL (8.5-10.1); Chloride 105 mmol/L (98-107); Cholesterol 216 mg/dL (200); Creatinine, Serum 0.73 mg/dL (0.70-1.30); EST Glomerular Filtration Rate 113 mL/min (>60); Est Glom Filt Rate - Afr Amer 136 mL/min (>60); Globulin 3.1 g/dL (2.2-4.2); Glucose 89 mg/dL (74-106); High Density Lipoprotein 49 mg/dL; Potassium 3.7 mmol/L (3.5-5.1); Protein, Total 7.1 g/dL (6.4-8.2); Sodium Level 141 mmol/L (136-145); Triglycerides 153 mg/dL; Very Low Density Lipoprotein 31 mg/dL (5-40)
== END ==
PROVIDERS: Family Provider Family Medicine; PCP Family Medicine; Visit Provider Family Medicine
DX: K81.0 Acute cholecystitis (principal); E78.5 Hyperlipidemia, unspecified
CPT/HCPCS: 36415; 80053; 80061; 85025

== ENCOUNTER → 2017-07-25 10:12 | Outpatient (CLI) | payer MEDICARE, OTHER, SELFPAY ==
[2017-07-25 13:02] LABS: AST(SGOT) 29 U/L (15-37); Alanine Aminotransfer ALT/SGPT 38 U/L (16-61); Alkaline Phosphatase 83 U/L (45-117); Bilirubin, Direct 0.26 mg/dL (0.00-0.30); Globulin 3.3 g/dL (2.2-4.2); Protein, Total 7.3 g/dL (6.4-8.2)
== END ==
PROVIDERS: Family Provider Family Medicine; PCP Family Medicine; Visit Provider Family Medicine
DX: R17 Unspecified jaundice (principal)
CPT/HCPCS: 36415; 80076

== ENCOUNTER → 2017-08-27 10:26 | Outpatient (CLI) | payer MEDICARE, OTHER, SELFPAY ==
--- NOTE | 2017-08-27 10:31 | RAD_ITS ---
STUDY: X-RAY - ABDOMEN/PELVIS REASON FOR EXAM: Male, 66 years old. GB REMOVED X1 MONTH AGO WITH CBD STENT PLACED, STENT PLACEMENT CHECK, RUQ TENDERNESS PER PT TECHNIQUE: AP supine and upright views of the abdomen and pelvis. COMPARISON: None. FINDINGS: Normal visualized lung bases. Biliary stent noted. There is a moderate amount of colonic fecal material. There is scoliosis of the lumbar spine. There is no demonstrated free abdominal air. The visualized liver, spleen and kidneys are grossly normal in size and morphology. Normal soft tissue structures. Normal visualized osseous structures. RAD/Abd Inc Decub and/or Erect IMPRESSION: Biliary stent noted. This is in the right upper quadrant. Constipation Electronically Signed: Gurmeet De Luna MD at 16:52 EDT , Service support ,
[2017-08-27 12:37] LABS: AST(SGOT) 20 U/L (15-37); Alanine Aminotransfer ALT/SGPT 29 U/L (16-61); Albumin, Serum 3.8 g/dL (3.2-5.0); Alkaline Phosphatase 86 U/L (45-117); Bilirubin, Direct 0.31 mg/dL (0.00-0.30); Globulin 3.4 g/dL (2.2-4.2); Lipase 591 U/L (73-393); Protein, Total 7.2 g/dL (6.4-8.2)
== END ==
PROVIDERS: Family Provider Family Medicine; PCP Family Medicine; Visit Provider Internal Medicine Gastroenterology
DX: R10.9 Unspecified abdominal pain (principal); Z90.49 Acquired absence of other specified parts of digestive tract
CPT/HCPCS: 36415; 74019; 80076; 83690

== ENCOUNTER → 2017-09-02 07:23 | Outpatient (CLI) | payer MEDICARE, OTHER, SELFPAY ==
--- NOTE | 2017-09-02 07:25 | CT_ITS ---
STUDY: CT ABDOMEN AND PELVIS WITH CONTRAST REASON FOR EXAM: Male, 66 years old. Right-sided abdominal pain. Possible pancreatitis. RADIATION DOSAGE (If Supplied By Facility): CTDIvol = ( 18.19 ) mGy, DLP = ( 1336.65 ) mGycm TECHNIQUE: Transaxial images were obtained from the dome of the diaphragm to the symphysis pubis with oral contrast. 100 ml of Isovue 300 contrast was administered. Sagittal and coronal images were reconstructed. Individualized dose optimization techniques were used for this CT. COMPARISON: Comparison is made with prior study dated June 02, 2017. FINDINGS: Stable mild degree of increased markings at the lung bases suggestive of either atelectasis and/or scarring. The visualized portions of the heart are within normal limits. There is decreased attenuation of the liver consistent with steatosis. There are surgical clips in the gallbladder fossa consistent with a prior cholecystectomy. A stent is seen in the common bile duct with the distal tip in the second portion of the duodenum. There is evidence of circumferential wall thickening of the distal portion of the stomach and duodenal bulb. I also suspect a duodenal diverticulum. Increased markings in the surrounding peritoneal fat. An inflammatory process should be ruled out. Normal spleen. There is diffuse atrophy of the pancreas. Normal bilateral adrenal glands. Normal right kidney. Normal left kidney. Normal visualized stomach. Normal small intestine. There are multiple colonic diverticula consistent with diverticulosis. The appendix is visualized and appears normal. Normal abdominal aorta. Normal inferior vena cava. Normal retroperitoneum. Stable 3 cm cystic mass in the left side of the pelvis. This most likely low-density urinary bladder diverticulum. There are prostatic calcifications. Normal abdominal wall. There are degenerative changes of the visualized lumbar spine. CT/Abdomen/Pelvis WITH Contrast IMPRESSION: Status post cholecystectomy. A biliary stent is seen in the common bile duct. There is wall thickening of the distal stomach and first portion of the duodenum with increased markings in the surrounding peritoneal fat. An inflammatory process should be ruled out. Electronically Signed: Garth Lynch MD at 8:25 EDT Tel [phone], Service support ,
[2017-09-02 07:50] LABS: CREATININE FINGERSTICK < 0.6 mg/dL (0.70-1.30); EGFR FINGERSTICK > 60.0000 mL/min (>60)
== END ==
PROVIDERS: Family Provider Family Medicine; PCP Family Medicine; Visit Provider Internal Medicine Gastroenterology
DX: K85.90 Acute pancreatitis without necrosis or infection, unspecified (principal)
CPT/HCPCS: 74177; Q9967

== ENCOUNTER → 2017-10-28 15:21 | Outpatient (CLI) | payer MEDICARE, OTHER, SELFPAY ==
[2017-10-28 17:55] LABS: AST(SGOT) 26 U/L (15-37); Alanine Aminotransfer ALT/SGPT 33 U/L (16-61); Albumin, Serum 3.8 g/dL (3.2-5.0); Alkaline Phosphatase 72 U/L (45-117); Bilirubin, Direct 0.24 mg/dL (0.00-0.30); PSA,Total - Annual Screen 1.45 ng/mL (0.00-4.00); Protein, Total 6.8 g/dL (6.4-8.2)
== END ==
PROVIDERS: Family Provider Family Medicine; PCP Family Medicine; Visit Provider Family Medicine
DX: R17 Unspecified jaundice (principal); Z12.5 Encounter for screening for malignant neoplasm of prostate
CPT/HCPCS: 36415; 80076; 84153; G0103

== ENCOUNTER → 2017-10-31 09:49 | Outpatient (CLI) | payer MEDICARE, OTHER, SELFPAY ==
--- NOTE | 2017-10-31 09:55 | US_ITS ---
STUDY: ULTRASOUND - URINARY BLADDER REASON FOR EXAM: Male, 67 years old. Incomplete bladder emptying. TECHNIQUE: Ultrasound evaluation of the urinary bladder was performed with real-time and static jackson-scale imaging. COMPARISON: None. FINDINGS: There is no right UVJ calculus. There is a visualized right ureteral jet. There is no left UVJ calculus. There is a visualized left ureteral jet. The distended volume of the urinary bladder is 202.9 ml. The empty volume of the urinary bladder is 60.1 ml. The bladder wall is within normal limits. The bladder wall measures 4.0. There is evidence of a left bladder diverticulum measuring 3.5 cm x 2.2 sides by 3.2 cm. There is no demonstrated bladder wall mass lesion. There are no demonstrated bladder calculi. US/Post Void Residual Bladder IMPRESSION: Small post void residual. Left bladder diverticulum measuring 3.5 cm x 3.2 cm x 3.2 cm. Electronically Signed: Garth Lynch MD at 14:31 EDT Tel [phone], Service support ,
== END ==
PROVIDERS: Family Provider Family Medicine; PCP Family Medicine; Visit Provider Family Medicine
DX: R33.9 Retention of urine, unspecified (principal)
CPT/HCPCS: 51798

== ENCOUNTER → 2018-04-23 09:27 | Outpatient (CLI) | payer MEDICARE, OTHER, SELFPAY ==
[2018-04-23 12:24] LABS: AST(SGOT) 20 U/L (15-37); Alanine Aminotransfer ALT/SGPT 31 U/L (16-61); Albumin, Serum 4.2 g/dL (3.2-5.0); Alkaline Phosphatase 93 U/L (45-117); Bilirubin, Direct 0.35 mg/dL (0.00-0.30); Globulin 2.8 g/dL (2.2-4.2)
== END ==
PROVIDERS: Family Provider Family Medicine; PCP Family Medicine; Visit Provider Family Medicine
DX: R30.0 Dysuria (principal); R17 Unspecified jaundice; E78.5 Hyperlipidemia, unspecified; Z12.5 Encounter for screening for malignant neoplasm of prostate
CPT/HCPCS: 36415; 80076; 87077; 87086; 87088

== ENCOUNTER → 2018-12-10 12:36 | Outpatient (CLI) | payer MEDICARE, OTHER, SELFPAY ==
[2018-12-10 13:51] LABS: Absolute Lymphocyte Count 1.96 X10^3/uL (0.83-4.51); Absolute Neutrophil Count 3.7 X10^3/uL (2.0-7.7); Basophil# 0.02 X10^3/uL; Basophil% 0.3 % (0-1); Eosinophil# 0.07 X10^3/uL; Eosinophils% 1.1 % (0-5); Hematocrit 47.1 % (40-54); Hemoglobin 15.6 g/dL (13.0-16.5); Lymphocyte # 1.96 X10^3/ul (4.0); Lymphocyte % 30.7 % (19-41); Mean Corp Hgb Conc 33.1 g/dL (32-36); Mean Corpuscular Hgb 29.3 pg (27.0-32.0); Mean Corpuscular Volume 88.4 fL (80-94); Mean Platelet Vol. 8.7 fl (6.2-12.0); Monocyte# 0.58 X10^3/uL; Monocyte% 9.1 % (0-10); NRBC Flagged by Analyzer 0 % (0-5); Neutrophil # 3.72 X10^3/uL (2.7-7.7); Neutrophil % 58.3 % (47-70); Platelet Count 199 K/mm3 (150-450); RBC Distribution Width CV 13.5 % (11.6-14.6); RBC Distribution Width SD 43.3 fl (35.1-43.9); Red Blood Count 5.33 M/mm3 (4.6-6.2); White Blood Count 6.4 K/mm3 (4.4-11.0)
[2018-12-10 14:10] LABS: AST(SGOT) 19 U/L (15-37); Alanine Aminotransfer ALT/SGPT 34 U/L (16-61); Albumin, Serum 3.9 g/dL (3.2-5.0); Alkaline Phosphatase 78 U/L (45-117); Bilirubin, Direct 0.29 mg/dL (0.00-0.30); Cholesterol 178 mg/dL (200); High Density Lipoprotein 45 mg/dL; PSA,Total - Annual Screen 1.41 ng/mL (0.00-4.00); Protein, Total 6.9 g/dL (6.4-8.2); Triglycerides 123 mg/dL; Very Low Density Lipoprotein 25 mg/dL (5-40)
== END ==
PROVIDERS: Family Provider Family Medicine; PCP Family Medicine; Referring Provider Family Medicine; Visit Provider Family Medicine
DX: Z00.00 Encounter for general adult medical examination without abnormal findings (principal); E78.5 Hyperlipidemia, unspecified; R17 Unspecified jaundice; Z12.5 Encounter for screening for malignant neoplasm of prostate
CPT/HCPCS: 36415; 80061; 80076; 84153; 85025; G0103

== ENCOUNTER → 2018-12-23 11:33 | Outpatient (CLI) | payer MEDICARE, OTHER, SELFPAY ==
[2018-12-23 14:11] LABS: Absolute Lymphocyte Count 1.72 X10^3/uL (0.83-4.51); Absolute Neutrophil Count 4.4 X10^3/uL (2.0-7.7); Basophil# 0.01 X10^3/uL; Basophil% 0.1 % (0-1); Eosinophil# 0.07 X10^3/uL; Hematocrit 47.4 % (40-54); Hemoglobin 16.1 g/dL (13.0-16.5); Lymphocyte # 1.72 X10^3/ul (4.0); Mean Corpuscular Volume 88.3 fL (80-94); Mean Platelet Vol. 8.8 fl (6.2-12.0); Monocyte% 8.7 % (0-10); NRBC Flagged by Analyzer 0 % (0-5); Neutrophil # 4.44 X10^3/uL (2.7-7.7); Neutrophil % 64.8 % (47-70); Platelet Count 214 K/mm3 (150-450); RBC Distribution Width CV 13.2 % (11.6-14.6); RBC Distribution Width SD 42.5 fl (35.1-43.9); Red Blood Count 5.37 M/mm3 (4.6-6.2); White Blood Count 6.9 K/mm3 (4.4-11.0)
[2018-12-23 14:33] LABS: Vitamin B12 714 pg/mL (211-911)
[2018-12-23 14:34] LABS: ALB/GLOB Ratio 1.1 RATIO (0.9-2.4); AST(SGOT) 21 U/L (15-37); Alanine Aminotransfer ALT/SGPT 36 U/L (16-61); Albumin, Serum 3.7 g/dL (3.2-5.0); Alkaline Phosphatase 80 U/L (45-117); Anion Gap 6 (5-15); BUN 18 mg/dL (7-18); BUN/Creat Ratio 21.9 RATIO (10-20); Chloride 106 mmol/L (98-107); Creatinine, Serum 0.82 mg/dL (0.70-1.30); EST Glomerular Filtration Rate 99 mL/min (>60); Est Glom Filt Rate - Afr Amer 119 mL/min (>60); Globulin 3.4 g/dL (2.2-4.2); Glucose 83 mg/dL (74-106); Protein, Total 7.1 g/dL (6.4-8.2); Sodium Level 141 mmol/L (136-145); T4 Free Direct 0.99 ng/dL (0.76-1.46); Thyroid Stim Hormone (TSH) 1.23 uIU/mL (0.358-3.74)
== END ==
PROVIDERS: Family Provider Family Medicine; PCP Family Medicine; Referring Provider Family Medicine; Visit Provider Family Medicine
DX: G31.84 Mild cognitive impairment of uncertain or unknown etiology (principal)
CPT/HCPCS: 36415; 80053; 82607; 84439; 84443; 85025

== ENCOUNTER 2019-04-08 09:07 | Emergency (ER) | payer MEDICARE, OTHER, SELFPAY ==
[2019-04-08 09:09] VITALS: BP 133/71; PULSE 85; RESP 18; TEMP 36.6; O2SAT 96; BMI 31.2
--- NOTE | 2019-04-08 09:25 | CT_ITS ---
STUDY: CT BRAIN WITHOUT CONTRAST REASON FOR EXAM: Male, 68 years old. Confusion and double vision following a recent fall. RADIATION DOSAGE (If Supplied By Facility): CTDIvol = ( 44.99 ) mGy, DLP = ( 829.85 ) mGycm TECHNIQUE: Transaxial CT imaging of the brain was performed without administration of intravenous contrast material. Individualized dose optimization techniques were used for this CT. COMPARISON: No relevant priors. FINDINGS: Scalp hematoma overlying the posterior aspect of the parietal bones bilaterally. Normal calvarium. I suspect a small subdural hematoma of the left cerebellar tentorium. There is mild cerebral atrophy with widening of the extra-axial spaces and ventricular dilatation. Normal white matter tracts of the cerebral hemispheres. Normal basal ganglia and thalami. Normal brainstem. Normal cerebellum. There is no intracranial hemorrhage. There are no findings of an acute ischemic infarction. Normal visualized paranasal sinuses. CT/Brain/Head without Contrast IMPRESSION: Chronic involutional changes of the brain. Scalp hematoma overlying the posterior aspect of the parietal bones bilaterally. I suspect a small subdural hematoma of the left cerebellar tentorium. Electronically Signed: Garth Lynch, at 9:49 EST , Service support ,
--- NOTE | 2019-04-08 09:27 | ED.DCSUM_ITS ---
History of Present Illness Chief Complaint: Fall Informant: Patient, Significant Other Occurred: Yesterday Mechanism/Context: Same level fall, Slip - on ice, fell backwards Usually ambulates: Without assistance Location: occipital scalp, left buttock Quality of Pain: - - sore Current Severity: Mild Maximum Severity: Mild Worsened by: palpation Relieved by: remaining still Associated Symptoms: Amnesia - for a period of time afterwards. Negative for: Parasthesias, Weakness, Loss of function, Inability to ambulate, Loss of consciousness Narrative: Patient brought by after a fall yesterday afternoon. He was amnestic to a period of time afterwards but since then, he thinks he has felt okay except for a mild headache. No vomiting. He has a history of dementia and is chronically confused, states that he has been more forgetful since this happened and she is concerned. He states he does not think he noticed his left buttock hurting until today. He denies any other known injury. Denies any back or neck pain. No aspirin or anticoagulants. - Past Medical History (1) Dementia Status: Chronic Past Medical History - Allergies and Home Meds Allergies/Adverse Reactions: Allergies No Known Allergies Allergy (Verified 04/08/19 09:11) Primary Care Physician: Papito Echevarria MD [Primary Care Provider] - Surgical History: cholecystectomy Lives: Spouse/ Significant Other Smoking Status: Never smoker Drugs: None Review of Systems ROS: Unable to Obtain - Able to obtain. Somewhat limited due to dementia. General: Denies: Chills, Fever Eyes: Reports: Diplopia. Denies: Visual changes - bilaterally ENT: Denies: Rhinorrhea, Sore throat Cardiovascular: Denies: Chest pain, Palpitations Respiratory: Denies: Dyspnea, Cough, Dyspnea on exertion Gastrointestinal: Denies: Abdominal pain, Nausea, Vomiting, Diarrhea, Melena, Hematochezia Genitourinary: Denies: Dysuria, Hematuria, Frequency Musculoskeletal: Reports: Extremity Pain - Left buttock only. Denies: Back pain, Swelling Skin: Reports: Abrasions - Scalp. Denies: Rash Neurological: Reports: Headache, - - Confusion. See HPI.. Denies: Weakness, Numbness Physical Exam Vital Signs/Narrative: Vital Signs Temp Pulse Resp BP Pulse Ox 04/08/19 09:09 98 F 85 18 133/71 H 96 Inital Vital Signs reviewed: Yes General: Well nourished, Well developed Head: Normocephalic, Trauma - Abrasion and mild tenderness at the left occiput, no crepitance or depression. No laceration. No boggy hematoma. Eyes: Perrl - 2-3mm, EOMI ENT: TM's clear, No hemotympanum or drainage, No trauma Neck: Nontender, Full ROM. Negative for: Spinal Tenderness, Paraspinal Tenderness Cardiovascular: Regular rate, Regular rhythm, No murmurs Respiratory: No distress, CTA bilaterally, Chest nontender Abdomen: Soft, Nontender, Nondistended, Normal bowel sounds Back: - - Mildly tender at approximately the left SI joint area. No deformities or other bony pelvic tenderness. Pelvis stable to AP compression. No tenderness at the ischial tuberosity or pelvic brim.. Negative for: Spinal Tenderness Extremeties: Able to stand and walk without difficulty. Full range of motion throughout all joints of all 4 extremities without pain or limitation. Skin: Normal color, No rash, Trauma - Abrasion occipital scalp Neurological: Alert, Cranial nerves II-XII grossly intact, Normal Strength, Normal Sensation, Normal Gait, Disoriented - To time only, - - GCS 14 Psychological: Normal affect, Normal Mood Diagnostic/Tx/Re-eval Clinical Impression(s) from Imaging Studies Brain CT 04/08/19 09:25 IMPRESSION: Chronic involutional changes of the brain. Scalp hematoma overlying the posterior aspect of the parietal bones bilaterally. I suspect a small subdural hematoma of the left cerebellar tentorium. Electronically Signed: Garth Lynch, at 9:49 EST , Service support , Pelvis X-Ray 04/08/19 09:38 IMPRESSION: Normal x-ray examination of the pelvis. Electronically Signed: Garth Lynch, at 9:56 EST , Service support , - Medical Decision Making CT shows a small subdural hematoma along the left cerebellar tentorium. There is no midline shift. He has neurologically intact with equal pupils. He seems to be at his baseline level of confusion with his dementia. He will need to be transferred for further monitoring and neurosurgical evaluation. He is on no antiplatelet or anticoagulant medications, although does not have a list of his medications. She has called his doctor to try to get them sent to us. I have sent for labs including coags. She prefers him to go to [place] in [place]. Accepted by Dr. Hook to the ER. Critical care time (excluding procedures): 30-74 minutes - 32 minutes, including time spent discussing with patient and family, consultants, arranging transfer ED Disposition - Plan for ED Patient: Disposition: [facility] Diagnosis: Traumatic subdural hematoma, Contusion of buttock, Fall from slipping on ice, Dementia Referrals: Papito Echevarria MD [Primary Care Provider] -
--- NOTE | 2019-04-08 09:38 | RAD_ITS ---
STUDY: X-RAY - PELVIS REASON FOR EXAM: Male, 68 years old. Left hip pain following a fall. TECHNIQUE: One view of the pelvis was obtained. COMPARISON: None. FINDINGS: There is a non-specific bowel gas pattern. Normal visualized soft tissue structures. Normal bilateral iliac wings, sacroiliac joints and visualized sacrum. Normal visualized bilateral superior and inferior pubic rami. Normal pubic symphysis. Normal ischial tuberosities. Normal visualized right femoral head. Normal right acetabulum. Normal right hip joint. Normal visualized left femoral head. Normal left acetabulum. Normal left hip joint. RAD/Pelvis 1 or 2 Views IMPRESSION: Normal x-ray examination of the pelvis. Electronically Signed: Garth Lynch, at 9:56 EST , Service support ,
[2019-04-08 10:21] LABS: Absolute Lymphocyte Count 1.47 X10^3/uL (0.83-4.51); Absolute Neutrophil Count 7.8 X10^3/uL (2.0-7.7); Basophil# 0.01 X10^3/uL; Basophil% 0.1 % (0-1); Eosinophil# 0.03 X10^3/uL; Eosinophils% 0.3 % (0-5); Hematocrit 48.5 % (40-54); Hemoglobin 16.5 g/dL (13.0-16.5); Lymphocyte # 1.47 X10^3/ul (4.0); Lymphocyte % 14.6 % (19-41); Mean Corpuscular Hgb 29.7 pg (27.0-32.0); Mean Corpuscular Volume 87.2 fL (80-94); Mean Platelet Vol. 8.4 fl (6.2-12.0); Monocyte# 0.69 X10^3/uL; Monocyte% 6.9 % (0-10); NRBC Flagged by Analyzer 0 % (0-5); Neutrophil # 7.81 X10^3/uL (2.7-7.7); Neutrophil % 77.7 % (47-70); Platelet Count 210 K/mm3 (150-450); RBC Distribution Width CV 12.9 % (11.6-14.6); Red Blood Count 5.56 M/mm3 (4.6-6.2); White Blood Count 10.1 K/mm3 (4.4-11.0)
[2019-04-08 10:27] VITALS: BP 116/74; PULSE 76; RESP 16; TEMP 36.6; O2SAT 98
[2019-04-08 10:32] LABS: International Normalized Ratio 1.1; Partial Thromboplast Time 26.2 Seconds (24.1-36.2); Prothrombin Time (Protime)PT. 13.5 SECONDS (11.7-14.9)
[2019-04-08 10:35] LABS: Anion Gap 4 (5-15); BUN 16 mg/dL (7-18); Calcium,Total 9.7 mg/dL (8.5-10.1); Chloride 109 mmol/L (98-107); Creatinine, Serum 0.84 mg/dL (0.70-1.30); EST Glomerular Filtration Rate 96 mL/min (>60); Est Glom Filt Rate - Afr Amer 116 mL/min (>60); Glucose 108 mg/dL (74-106); Potassium 4.1 mmol/L (3.5-5.1); Sodium Level 144 mmol/L (136-145)
== END 2019-04-08 10:53 | disposition short-term general hospital (02) ==
PROVIDERS: Emergency Provider Emergency Medicine; Family Provider Family Medicine; PCP Family Medicine
DX: S06.5X9A Traumatic subdural hemorrhage with loss of consciousness of unspecified duration, initial encounter (principal); S30.0XXA Contusion of lower back and pelvis, initial encounter; W00.0XXA Fall on same level due to ice and snow, initial encounter; Y93.9 Activity, unspecified; F03.90 Unspecified dementia, unspecified severity, without behavioral disturbance, psychotic disturbance, mood disturbance, and anxiety
CPT/HCPCS: 70450; 72170; 80048; 85025; 85610; 85730; 99284; A4216

== ENCOUNTER → 2019-05-25 | Outpatient (CLI) | payer MEDICARE, OTHER, SELFPAY ==
[2019-05-25 14:25] VITALS: BMI 27.3
== END | disposition home or self-care (01) ==
LOC: LABSPEC 16:07
PROVIDERS: PCP Family Medicine; Referring Provider Urology; Visit Provider Urology
DX: N39.0 Urinary tract infection, site not specified (principal)
CPT/HCPCS: 87077; 87086; 87088

== ENCOUNTER 2019-06-02 05:35 | Day surgery (SDC) | payer MEDICARE, OTHER, SELFPAY ==
[2019-05-25 14:25] VITALS: BP 131/83; PULSE 93; RESP 16; TEMP 36.8; O2SAT 96; BMI 27.3
--- NOTE | 2019-05-25 14:29 | SDCEKG_ITS ---
Test Reason : Blood Pressure : / mmHG Vent. Rate : 091 BPM Atrial Rate : 091 BPM P-R Int : 198 ms QRS Dur : 084 ms QT Int : 354 ms P-R-T Axes : 044 038 028 degrees QTc Int : 435 ms Normal sinus rhythm Normal ECG Confirmed by JOSE DE LA GARZA, LEE ([id number]), newspaper editor managing [employer] ([id number]) on 05/26/2019 9:06:45 AM Referred By: José Gibbs Confirmed By:LEE GARCIA MD
--- NOTE | 2019-05-25 14:29 | RAD_ITS ---
STUDY: X-RAY CHEST REASON FOR EXAM: Male, 68 years old. PRE OP, NO CURRENT CHEST COMPLAINTS TECHNIQUE: PA and lateral views of the chest. COMPARISON: There are no available comparison images allowing for technical limitations. FINDINGS: There is trace linear density at the left lung base. There is elevation of the right hemidiaphragm. There is no demonstrated pleural abnormality. Normal size heart. Normal mediastinum and mata. Normal visualized pulmonary arteries. Normal visualized aortic arch and descending thoracic aorta. There are diffuse degenerative changes of the visualized thoracic spine. Normal visualized ribs, clavicles, and shoulders. There is no demonstrated abnormality of the visualized soft tissue structures of the upper abdomen. RAD/Chest PA and Lateral IMPRESSION: There is left lower lobe atelectasis. No definitive acute focal consolidation. Electronically Signed: Syeda Qureshi MD at 15:57 EST Tel , Service support ,
[2019-05-25 15:05] LABS: Hematocrit 49.2 % (40-54); Hemoglobin 16.9 g/dL (13.0-16.5); Mean Corp Hgb Conc 34.3 g/dL (32-36); Mean Corpuscular Hgb 29.5 pg (27.0-32.0); Mean Platelet Vol. 8.5 fl (6.2-12.0); Platelet Count 245 K/mm3 (150-450); RBC Distribution Width CV 13.1 % (11.6-14.6); RBC Distribution Width SD 40.8 fl (35.1-43.9); Red Blood Count 5.72 M/mm3 (4.6-6.2); White Blood Count 9.5 K/mm3 (4.4-11.0)
[2019-05-25 15:09] LABS: Color, Urine Yellow (Yellow); Glucose, Dipstick Normal (Normal); Ketone-Dipstick Negative (Negative); Leukocyte Esterase-Dipstick 500 /ul (Negative); Nitrite-Dipstick Negative (Negative); Occult Blood-Urine 50 /ul (Negative); Protein-Dipstick 15 mg/dl (Negative); Urine Bilirubin Dipstick Negative (Negative); Urine Clarity Cloudy (Clear); Urine Urobilinogen Normal (Normal)
[2019-05-25 16:07] LABS: ALB/GLOB Ratio 1.1 RATIO (0.9-2.4); AST(SGOT) 21 U/L (15-37); Alanine Aminotransfer ALT/SGPT 40 U/L (16-61); Albumin, Serum 3.8 g/dL (3.2-5.0); Alkaline Phosphatase 82 U/L (45-117); Anion Gap 5 (5-15); BUN 15 mg/dL (7-18); BUN/Creat Ratio 15.4 RATIO (10-20); Calcium,Total 9.6 mg/dL (8.5-10.1); Chloride 107 mmol/L (98-107); Creatinine, Serum 0.97 mg/dL (0.70-1.30); EST Glomerular Filtration Rate 81 mL/min (>60); Est Glom Filt Rate - Afr Amer 98 mL/min (>60); Estimated Creatinine Clearance 84.69 ml/min; Globulin 3.4 g/dL (2.2-4.2); Glucose 78 mg/dL (74-106); Potassium 3.6 mmol/L (3.5-5.1); Protein, Total 7.2 g/dL (6.4-8.2); Sodium Level 142 mmol/L (136-145)
[2019-06-02] VITALS (13 sets, daily range): BP systolic 94–123; BP diastolic 62–73; PULSE 74–95; RESP 14–18; TEMP 36.4–37.2; O2SAT 91–100; BMI 27.3
--- NOTE | 2019-06-02 | PROST_PTH ---
PATIENT: SABINO MENDOZA Jr. LOC: [facility] U#:[id number] AGE/SX: 68/M ROOM: RE06/02/[address]: Dr. José Gibbs MD : [id number] BED: DIS: 06/03/2019 SPEC #: [id number] RECD: 06/02/19 15:04 STATUS: BIJAL RELatesha #: [id number] KARLEE: 06/02/19 00:[address]: José Gibbs DEPT: SURGICAL PATHOLOGY RECD BY: Vasyl Delcid ENTERED: 06/02/19 15:05 SP TYPE: PROSTATE OTHR DR: Dr. Papito Echevarria MD Tissues: A - Urinary bladder, NOS B - Prostate, NOS Procedures: Surgery Specimen Level IV Surgery Specimen Level V HEADER OPERATION: Lap robotic bladder diverticulectomy and simple prostatectomy PRE-OP DIAGNOSIS: BPH; frequent micturition; poor urinary stream; diverticulum of bladder TISSUE SUBMITTED: A - Diverticulum of bladder, B - Prostate MICROSCOPIC DIAGNOSIS A. Diverticulum of urinary bladder, excision: Diverticulum with mild chronic inflammation and vascular congestion. B. Prostate, simple prostatectomy: Benign stromal nodule. AM:katja 06/03/19 MICROSCOPIC DESCRIPTION Slides are reviewed. GROSS DESCRIPTION A - Received in fixative is one container labeled with the patient's name and designated diverticulum of bladder. The specimen consists of a saccular fragment of glistening, chau mucosa with attached hemorrhagic submucosal tissue measuring 4 x 2.5 x 1.2 cm. The nonmucosal surfaces are inked. Serial sections do not reveal mass lesions. Social Worker Delinquency Prevention sections are submitted in two cassettes. B - Received in fixative is one container labeled with the patient's name and designated prostate. The specimen consists of a rubbery fragment of light chau-pink soft tissue measuring 2.6 x 2 x 1.5 cm. The specimen is inked and then serially sectioned to reveal homogenous, rubbery white cut surfaces. No areas of cyst, necrosis or softening are identified. Social Worker Delinquency Prevention sections are submitted in four cassettes. / AM:katja 06/02/19 TC:1 CPT: 22643, 10666
[2019-06-02] MEDS: Lactated Ringers 1,000 ML 100 ML IV ×2 (06:17→06:30)
[2019-06-02] MEDS: Cefazolin 2 GM in 0.9% Normal Saline 100 ML IV (07:22)
--- NOTE | 2019-06-02 07:36 | PCM.DC.URO ---
Discharge Diet: Light diet - advance as tolerated Discharge Activity: May Not Drive, May not drive while taking narcotic pain medications., May Shower Return to work on:: 07/14/19 May shower in (days): 1 May resume sexual activity in: 6 weeks Lifting Restrictions: No lifting > 10 lbs for 6 weeks Call your doctor if your incision/area has: Continuous Slow Oozing, Sudden Increased Bleeding, Increased Pain/ Swelling, Increased Redness, Foul Smelling Discharge, Swelling at the incision site Call your doctor if you observe: Fever of 101 or Higher, Inability to urinate, Inability to have a bowel movement, Uncontrolled pain Suture Line Care: Avoid Pulling/Pushing, Avoid Pinching/Bending Catheter: Park to leg bag, Park to large bag Drain: [place] Allergies/Adverse Reactions: Allergies No Known Allergies Allergy (Verified 06/02/19 06:05) Medications to take at Discharge Ciprofloxacin [Cipro] 500 mg PO BID #20 tab 06/02/19 Ibuprofen 600 mg PO Q6H PRN PRN #20 tab 06/02/19 The following prescriptions were given: Ciprofloxacin [Cipro] 500 mg PO BID #20 tab Transmission Status: Pending to [facility] Ibuprofen 600 mg PO Q6H PRN PRN #20 tab PRN Reason: Pain Or Fever Transmission Status: Pending to [facility] Primary Care Physician: Papito Echevarria MD [Primary Care Provider] - Test Results: Test results from this visit will be discussed in further detail at your follow-up appointment, if applicable. Please Follow Up With: José Gibbs MD When: in 2 weeks, please call to make an appointment. Proposed Discharge Date: 06/03/19
[2019-06-02] MEDS: Lubricating Jelly 60 GM Tube 30 GM TOPICAL (07:50)
[2019-06-02] MEDS: Bupivacaine Mpf 0.5% 30 ML VIAL (10:00)
--- NOTE | 2019-06-02 10:12 | OP.PCM_ITS ---
Report of Operation Date of Procedure: 06/02/19 Pre-Operative Diagnosis: Large bladder diverticulum, BPH with obstruction Post-Operative Diagnosis: The same Surgery/Procedure Performed:: 1. Unlisted laparoscopic procedure of the bladder, laparoscopic diverticulectomy of the bladder. #2. Unlisted laparoscopic procedure of the prostate, laparoscopic simple prostatectomy. Description of Surgical Findings:: 68-year-old male who was found to have recurrent bladder infections poor emptying and obstruction on cystoscopy was found to have a very large obstructive prostate. Within the bladder he was found to have a very large bladder diverticulum that was causing incomplete emptying and recurrent infections. Because of this today we can proceed with a laparoscopic diverticulectomy and also a laparoscopic prostatectomy, simple. 68-year-old male was taken back to the operating room after smooth induction of general anesthesia he was placed supine on the table. His abdomen was shaved. We then prepped and draped the abdomen and the penis and testicles in usual sterile fashion. He was in dorsolithotomy with the legs in stirrups we then flexed the legs downward. With the legs spread wide. I then inspected the abdomen the umbilicus had been prepped I meatus small incision in the umbilicus and infiltrated the incision with Marcaine. I used a hemostat to spread the incision and went through the subcutaneous fat so I reached the fascia. I then used a Veress needle to advanced through the skin and the fat until I went to the fascia and once a Veress needle was into the peritoneal cavity I insufflated the peritoneal cavity with CO2 gas. We then placed our first trocar at the umbilicus. I then inspected the abdomen and identified the sigmoid colon some attachments of the similar colon to the bladder after inspecting the abdomen we then decided placements of our ports. I placed my right port lateral to the rectus on the right side used a needle to infiltrate the skin and subcutaneous fat with Marcaine made a small incision in the skin and then used the trocar through the port in place a port on the right side. I then did the same thing on the left side infiltrated the skin with Marcaine marking all the way down to the fascia and then made a small incision the skin placed the left trocar I then 1 went another 8 cm lateral to that trocar to place my fourth arm trocar by infiltrating the skin with Marcaine make a small incision in the skin and then used a Veress needle to find the skin and incision into the fascia and then placed my trocar on the on the right side. Once the camera trocar right arm left arm and second left arm trocar were in place we then placed the air seal port again we found the placement they are so poor it was in the right lower quadrant. Advanced the Marcaine needle to find the location of the entry the air seal port made an incision in the skin and then advanced the ulcer port into the abdomen. Patient was then placed in full Trendelenburg. We then docked the robot on the ports. I then started the dissection I used a scissors in my right arm bipolar and my left arm and the pro-grasp in my fourth arm. We use an air seal port during the entire case. We do the patient had a very large diverticulum coming off the posterior left aspect of the bladder. We filled the bladder up with 600 cc of saline. This allowed the bladder to distend nicely and could see the diverticulum protruding posteriorly off the bladder edge overlying with the peritoneum. I first had to mobilize the sigmoid colon off the lateral wall of the pelvis in order to be able to reach the bladder I then incised the peritoneum over the diverticulum dissecting down to I got on top of the diverticulum I then used my fourth arm to retract the peritoneum inferiorly I then started dissecting the diet to kill him I identified the sac there was significant amount of adherent tissue between the fat and the sac try to enter the space where there would be an easy peeling of the diverticulum off the bladder but there was quite adherent using the fourth arm to retract the diverticulum laterally I then dissected the diverticulum as a went inferiorly towards the bladder until I reached the diverticular neck that was going into the bladder. I then went superficial and above the diverticulum dissecting the fat in the diverticulum off the fat the diverticulum again was extremely adherent to the posterior aspect of the bladder I then used the fourth of the retractor the diverticulum superiorly and continued to follow the mucosal plane until I got close to the neck of the diverticulum at this point we entered the diverticulum this drained the bladder and then we could see the inside diverticulum I then transected the diverticulum inferiorly all the way across to allow it to dissect off the floor of the diverticulum I then dissected the lateral aspect of the diverticulum off the lateral attachments of the pelvic wall avoiding the major blood vessels. Also avoiding the ureter as we are d issecting inferiorly we could then see the ureter inferior the diverticulum we dissected the diverticulum off the urachus and it was quite adherent. Finally we went superior to the diverticulum and freed up the diverticulum superior all the way to the inferior attachments and then finally the diverticulum was free that it only attached to the diverticular neck I then placed a stay stitch using stitches right proximal to the diverticular neck to conchis the neck I then transected through the mucosa until that I cut off the diverticulum off the diverticular neck so the mucosa then retracted and then the diverticulum was free this was then And placed in an Endo Catch bag. We then closed the opening of the diverticulum into the bladder with the stay stitch this was a 3-0 Vicryl using a continuous running stitch until the diverticulum was closed there was minimal bleeding we then filled the bladder up with 600 cc there was a little bit of leakage so we placed an extra stitch to control this and then there was no leakage whatsoever. Once we had completed the removal of the diverticulum and the diverticulectomy and closure of the bladder neck I then opened up the bladder in the midline using electrocautery clamshell the bladder open from the top to the bottom avoiding the trigone. We then retracted the henry of the bladder laterally using suction and our fourth arm pro-grasp on the inside I then closed the inside of the diverticulum with a 4-0 Vicryl. Once the inside of the diverticulum was closed then we went on to the second part of the procedure which was the simple prostatectomy the catheter was identified we identified a large adenomatous tissue there was a significant enlargement on the patient's left side of the prostate we then incised the mucosa over the adenoma in the prostate until we got to the abdomen and then was plain we then started dissecting the adenoma off the inside of the prostate working her way down to the attachment of the abdomen [place] to the sphincter we Working Pulling the Adenoma Using Her Fourth Arm for Retraction and Dissecting the Adenoma until Finally the Entire Adenoma Was Enucleated from the Prostate We Checked the Other Side of the Prostate and There Was Only a Very Very Minimal Size Adenoma on the Left Side This Was the Large Obstructing Adenoma and so Once the Adenoma Was Enucleated Completely We Then Cauterized the Base of the Resection Completely the Adenoma Was Placed in Endo Catch Bag after Cauterizing the Base Then We Placed FloSeal on the Cauterization Site. We Then Change the Catheter from a 18 Belgian to 20 Belgian Catheter. We Inflated the Balloon with 20 Cc and Pulled Back in the Catheter and This Allowed for Good [place]od of the Prostate and Control Bleeding. After the Simple Prostatectomy Was Completed Then We Closed the Bladder Incision in the Midline We We Used a 3-0 Vicryl Running from the Post Posterior Inferior Aspect the Bladder All the Way to the Dome with This Was Run in a Continuous Fashion in a Watertight Fashion Once the First Layer Was Closed and We Closed the Second Layer with 2-0 Vicryl Closing the Bladder from the Posterior Aspect All the Way to the Superior Aspect. Then at This Point We Extracted the Adenoma and the Diverticulum through the Air Seal Port We Closed the Air Seal Port with a Erik Odell Stitch to Close the Fascia of the Air Seal Port We Removed the Trochars We Emptied out All the Gas within the Abdomen We Inspected the Abdomen Prior to Removing the Trochars There Was No Signs of Bleeding or Injury to the Critical Structures within the Abdomen All the Sponges and [place] Were Accounted for after Removing the Trochars Then We Closed the Incisions There Was 5 Small Incisions Were Closed with Subcuticular Stitches and Dressings Were Placed and Steri-Strips Were Placed. The Patient Was Then Anesthesia Was Reversed He Was Extubated and Taken Back to the PACU in Good Condition. Surgical Time for for this procedure was about 3 hours. Type of Anesthesia:: General Drains: 20 fr hernández Estimated Blood Loss (mL): 50cc - Admit VTE Documentation VTE Present on Admission: No VTE Mechan Device Prophylaxis: SCD's
[2019-06-02] MEDS: 0.45% Normal Saline 1,000 ML 150 ML IV (16:00)
[2019-06-02] MEDS: Ciprofloxacin 400 MG/200 ML BAG 200 MG IV (16:00)
[2019-06-02] MEDS: Ketorolac 15 MG/ML Vial IV ×2 (16:02→21:01)
[2019-06-02] MEDS: Docusate Sodium 100 MG Capsule PO ×2 (16:04→21:01)
[2019-06-02] MEDS: Pantoprazole Sodium 20 MG Tablet PO (16:04)
[2019-06-02] MEDS: 0.9% Saline Lock 10 ML Syringe IV (21:03)
[2019-06-03] MEDS: 0.45% Normal Saline 1,000 ML 150 ML IV (00:32)
[2019-06-03] MEDS: Ciprofloxacin 400 MG/200 ML BAG 200 MG IV (01:56)
[2019-06-03] MEDS: Ketorolac 15 MG/ML Vial IV ×2 (01:56→06:14)
[2019-06-03] MEDS: 0.9% Saline Lock 10 ML Syringe IV ×2 (01:57→06:15)
[2019-06-03 02:00] VITALS: BP 110/61; PULSE 90; RESP 18; TEMP 36.9; O2SAT 93
[2019-06-03 05:35] LABS: Hematocrit 40.8 % (40-54); Hemoglobin 13.8 g/dL (13.0-16.5); Mean Corp Hgb Conc 33.8 g/dL (32-36); Mean Corpuscular Hgb 29.1 pg (27.0-32.0); Mean Corpuscular Volume 85.9 fL (80-94); Mean Platelet Vol. 8.7 fl (6.2-12.0); Platelet Count 218 K/mm3 (150-450); RBC Distribution Width SD 40.6 fl (35.1-43.9); Red Blood Count 4.75 M/mm3 (4.6-6.2); White Blood Count 13.2 K/mm3 (4.4-11.0)
[2019-06-03 05:54] LABS: Anion Gap 2 (5-15); BUN 12 mg/dL (7-18); BUN/Creat Ratio 12.7 RATIO (10-20); Calcium,Total 8.3 mg/dL (8.5-10.1); Chloride 105 mmol/L (98-107); Creatinine, Serum 0.94 mg/dL (0.70-1.30); EST Glomerular Filtration Rate 84 mL/min (>60); Est Glom Filt Rate - Afr Amer 101 mL/min (>60); Glucose 133 mg/dL (74-106); Potassium 3.6 mmol/L (3.5-5.1); Sodium Level 138 mmol/L (136-145)
[2019-06-03] MEDS: Enoxaparin 40 MG/0.4 ML Syringe SC (06:15)
[2019-06-03 07:33] VITALS: BP 97/52; BP 99/63; PULSE 73; PULSE 78; RESP 16; TEMP 36.6; TEMP 36.8; O2SAT 94; O2SAT 95
[2019-06-03 08:00] VITALS: PULSE 73; RESP 16; O2SAT 94
[2019-06-03] MEDS: Pantoprazole Sodium 20 MG Tablet PO (09:02)
[2019-06-03] MEDS: Docusate Sodium 100 MG Capsule PO (09:02)
[2019-06-03 11:18] VITALS: BP 109/62; PULSE 91; RESP 16; TEMP 36.8; O2SAT 93
== END 2019-06-03 12:30 | disposition home or self-care (01) ==
LOC: SDC 05:35 → AC 05:35 → MS3 06-03 09:27
PROVIDERS: PCP Family Medicine; Referring Provider Urology; Visit Provider Urology
PROC: (CPT 51550; principal; 2019-06-02 07:10)
DX: N32.3 Diverticulum of bladder (principal); N40.1 Benign prostatic hyperplasia with lower urinary tract symptoms; N13.8 Other obstructive and reflux uropathy; R35.0 Frequency of micturition; R35.1 Nocturia; R39.12 Poor urinary stream; N30.00 Acute cystitis without hematuria; Z87.440 Personal history of urinary (tract) infections
CPT/HCPCS: 00860; 51525; 55899; 36415; 71046; 80048; 80053; 81002; 85027; 86850; 86900; 86901; 88305; 88307; 88309; 93005; 99251; J7120; A4216; G0463; J0744; J2405

== ENCOUNTER → 2019-08-04 09:55 | Outpatient (CLI) | payer MEDICARE, OTHER, SELFPAY ==
[2019-06-02 06:09] VITALS: BMI 27.3
[2019-08-04 12:41] LABS: AST(SGOT) 18 U/L (15-37); Alanine Aminotransfer ALT/SGPT 32 U/L (16-61); Albumin, Serum 3.9 g/dL (3.2-5.0); Alkaline Phosphatase 78 U/L (45-117); Bilirubin, Direct 0.23 mg/dL (0.00-0.30); Cholesterol 188 mg/dL (200); Globulin 3.1 g/dL (2.2-4.2); High Density Lipoprotein 47 mg/dL; Triglycerides 111 mg/dL; Very Low Density Lipoprotein 22 mg/dL (5-40)
== END ==
PROVIDERS: PCP Family Medicine; Referring Provider Family Medicine; Visit Provider Family Medicine
DX: R17 Unspecified jaundice (principal); E78.5 Hyperlipidemia, unspecified
CPT/HCPCS: 36415; 80061; 80076

== ENCOUNTER → 2019-09-14 10:05 | Outpatient (CLI) | payer MEDICARE, OTHER, SELFPAY ==
[2019-06-02 06:09] VITALS: BMI 27.3
[2019-09-14 11:49] LABS: PSA,Total- Diagnostic 1.48 ng/mL (0.0-4.0)
== END ==
PROVIDERS: PCP Family Medicine; Referring Provider Urology; Visit Provider Urology
DX: Z12.5 Encounter for screening for malignant neoplasm of prostate (principal); N40.1 Benign prostatic hyperplasia with lower urinary tract symptoms; N13.8 Other obstructive and reflux uropathy
CPT/HCPCS: 36415; 84153

== ENCOUNTER → 2019-11-18 | Outpatient (CLI) | payer MEDICARE, OTHER, SELFPAY ==
[2019-06-02 06:09] VITALS: BMI 27.3
== END | disposition home or self-care (01) ==
PROVIDERS: PCP Family Medicine; Referring Provider Family Medicine; Visit Provider Family Medicine
DX: B34.9 Viral infection, unspecified (principal)
CPT/HCPCS: 87635; U0003

== ENCOUNTER 2020-04-29 17:23 | Emergency (ER) | payer MEDICARE, OTHER, SELFPAY ==
[2019-06-02 06:09] VITALS: BMI 27.3
[2020-04-29 17:24] VITALS: BP 103/74; PULSE 73; RESP 16; TEMP 36.7; O2SAT 97; BMI 27.2
--- NOTE | 2020-04-29 17:45 | CT_ITS ---
STUDY: CT CERVICAL SPINE WITHOUT CONTRAST REASON FOR EXAM: Male, 69 years old. FELL YESTERDAY. HAVING NECK PAIN WITH VISUAL DISTURBANCES. PT DOES HAVE DEMENTIA RADIATION DOSAGE (If Supplied By Facility): CTDIvol = ( 26.49 ) mGy, DLP = ( 752.85 ) mGycm TECHNIQUE: High resolution transaxial imaging was performed without contrast material. Sagittal and coronal images were reconstructed. Individualized dose optimization techniques were used for this CT. COMPARISON: None FINDINGS: Normal craniovertebral junction. There are degenerative changes of the anterior atlantoaxial articulation. Normal odontoid process. There is straightening of the normal cervical lordosis. Normal vertebral bodies and posterior osseous elements. C2-3: Normal endplates. Normal disc height and morphology. Normal central canal and intervertebral neuroforamina. C3-4: Disc space narrowing with posterior disc osteophyte complex mildly narrowing the spinal canal. There is left more than right foraminal narrowing due to uncovertebral and facet arthropathy. C4-5: Disc space narrowing with posterior disc osteophyte complex contiguous with uncovertebral hypertrophy. Mild canal and right more than left foraminal stenosis. C5-6: Minor disc space narrowing with anterior spondylosis. No significant canal or foraminal stenosis. C6-7: Disc space narrowing with left paracentral disc osteophyte complex extending into the left uncovertebral hypertrophy. There is left more than right foraminal narrowing. C7-T1: Normal endplates. Normal disc height and morphology. Normal central canal and intervertebral neuroforamina. Ossifications of the posterior soft tissues likely sequela of prior injury (chronic). There is ectasia of the thoracic aorta with axial diameter of the ascending aorta measuring up to [address]/Spine Cervical without Contras IMPRESSION: 1. No cervical spine fracture or traumatic subluxation. 2. Degenerative changes, as above. 3. Electronically Signed: Nicholas Arana MD ([place]) at 18:13 EST , Service support ,
--- NOTE | 2020-04-29 17:51 | ED.VISSUMM ---
- ER Visit Summary Date of Service: 04/29/20 Chief Complaint: Fall History of Present Illness: The patient is a [address] Schmitz. Patient reports that yesterday he was bringing the trash can when he lost his balance and fell. He did hit his head. He denies loss of consciousness. He is not on anticoagulants. However, reports the patient has a history of dementia and was out there for a long time. Patient reports that he has mild neck pain. He denies any back pain. No shoulder, wrist, or hip pain. His review of systems is otherwise negative. He denies any change in his vision. Physical Examination: Vitals: Stable. Afebrile. Head: Abrasion/contusion just above the lateral portion of the right eyebrow. The contusion is spreading to his upper eyelid. Neck: Mild diffuse vertebral tenderness. No point tenderness. Full ROM without difficulty. Back: No vertebral tenderness. General: A&O x 3. NAD. Cardiovascular exam: Regular rate and rhythm, no murmur, rub or gallop. Respiratory exam: Chest nontender. No crepitus. Clear to auscultation bilaterally. No wheezes or stridor. Abdominal exam: Soft, nontender, nondistended, normal bowel sounds. No pain in RUQ or LUQ specifically. No peritoneal signs. Extremity: Atraumatic. No pain with range of motion. Test Results: Clinical Impression(s) from Imaging Studies Cervical Spine CT 04/29/20 17:45 IMPRESSION: 1. No cervical spine fracture or traumatic subluxation. 2. Degenerative changes, as above. 3. Electronically Signed: Nicholas Arana MD ([place]) at 18:13 EST , Service support , Brain CT 04/29/20 17:55 IMPRESSION: 1. No acute intracranial hemorrhage or mass effect. 2. Age-appropriate involutional changes. Electronically Signed: Nicholas Arana MD ([place]) at 18:10 EST , Service support , Emergency Department Course and Treatment: Patient refused pain or nausea medications. He is unsure when his last tetanus shot was. He is given dose of Adacel IM. He is resting comfortably. Treatment Plan: Patient will be discharged with symptomatic care. Instructed to follow-up his primary care physician in 3 to 5 days for another exam. Return to the emergency department for any worsening symptoms. Disposition: To home in improved and stable condition. Impression: 1. Mechanical fall. 2. Closed head injury. 3. Cervical strain. This note was generated with [employer] dictation software. It may contain incorrect words, spelling, and punctuation that were not noted in review of the chart prior to signing ED Disposition - Plan for ED Patient: Instructions: ED Head Injury (Adult) Referrals: Papito Echevarria MD [Primary Care Provider] - 3-5 Days
--- NOTE | 2020-04-29 17:55 | CT_ITS ---
STUDY: CT BRAIN WITHOUT CONTRAST REASON FOR EXAM: Male, 69 years old. FELL YESTERDAY. HAVING NECK PAIN WITH VISUAL DISTURBANCES. PT DOES HAVE DEMENTIA RADIATION DOSAGE (If Supplied By Facility): CTDIvol = ( 44.99 ) mGy, DLP = ( 829.85 ) mGycm TECHNIQUE: Transaxial CT imaging of the brain was performed without administration of intravenous contrast material. Individualized dose optimization techniques were used for this CT. COMPARISON: 04/08/2019 FINDINGS: Normal soft tissue structures. Normal calvarium. There is mild cerebral atrophy with widening of the extra-axial spaces and ventricular dilatation. Normal white matter tracts of the cerebral hemispheres. Normal basal ganglia and thalami. Normal brainstem. Normal cerebellum. There is no intracranial hemorrhage. There are no findings of an acute ischemic infarction. Normal visualized paranasal sinuses. CT/Brain/Head without Contrast IMPRESSION: 1. No acute intracranial hemorrhage or mass effect. 2. Age-appropriate involutional changes. Electronically Signed: Nicholas Arana MD ([place]) at 18:10 EST , Service support ,
[2020-04-29] MEDS: Diphth,Pertuss(Acell),Tet Vac 0.5 ML Vial IM (18:16)
[2020-04-29 18:30] VITALS: BP 111/75; PULSE 79; RESP 16; O2SAT 97
== END 2020-04-29 18:30 | disposition home or self-care (01) ==
LOC: ED 17:52
PROVIDERS: Emergency Provider Emergency Medicine; PCP Family Medicine
DX: S00.83XA Contusion of other part of head, initial encounter (principal); S16.1XXA Strain of muscle, fascia and tendon at neck level, initial encounter; W01.0XXA Fall on same level from slipping, tripping and stumbling without subsequent striking against object, initial encounter; Y93.89 Activity, other specified; Y92.9 Unspecified place or not applicable; Y99.9 Unspecified external cause status; F03.90 Unspecified dementia, unspecified severity, without behavioral disturbance, psychotic disturbance, mood disturbance, and anxiety
CPT/HCPCS: 70450; 72125; 90471; 90715; 99282

== ENCOUNTER → 2020-11-13 11:49 | Outpatient (CLI) | payer MEDICARE, OTHER, SELFPAY ==
[2020-11-13 13:00] LABS: PSA,Total - Annual Screen 1.27 ng/mL (0.00-4.00)
== END ==
PROVIDERS: PCP Family Medicine; Referring Provider Nurse Practitioner Adult Health; Visit Provider Nurse Practitioner Adult Health
DX: Z12.5 Encounter for screening for malignant neoplasm of prostate (principal)
CPT/HCPCS: 36415; 84153; G0103

== ENCOUNTER → 2020-12-28 09:56 | Outpatient (CLI) | payer MEDICARE, OTHER, SELFPAY ==
[2020-12-28 12:18] LABS: Vitamin B12 1781 pg/mL (211-911)
[2020-12-28 12:22] LABS: AST(SGOT) 22 U/L (15-37); Alanine Aminotransfer ALT/SGPT 40 U/L (16-61); Albumin, Serum 3.6 g/dL (3.2-5.0); Alkaline Phosphatase 102 U/L (45-117); Anion Gap 6 (5-15); BUN 16 mg/dL (7-18); BUN/Creat Ratio 15.5 RATIO (10-20); Bilirubin, Direct 0.26 mg/dL (0.00-0.30); Calcium,Total 9.7 mg/dL (8.5-10.1); Chloride 102 mmol/L (98-107); Cholesterol 244 mg/dL (200); Creatinine, Serum 1.03 mg/dL (0.70-1.30); EST Glomerular Filtration Rate 75 mL/min (>60); Est Glom Filt Rate - Afr Amer 91 mL/min (>60); Glucose 97 mg/dL (74-106); High Density Lipoprotein 50 mg/dL; Potassium 3.9 mmol/L (3.5-5.1); Protein, Total 7.6 g/dL (6.4-8.2); Sodium Level 136 mmol/L (136-145); Thyroid Stim Hormone (TSH) 2.17 uIU/mL (0.358-3.74); Triglycerides 137 mg/dL; Very Low Density Lipoprotein 27 mg/dL (5-40)
== END ==
PROVIDERS: PCP Family Medicine; Referring Provider Family Medicine; Visit Provider Family Medicine
DX: E78.5 Hyperlipidemia, unspecified (principal); F03.90 Unspecified dementia, unspecified severity, without behavioral disturbance, psychotic disturbance, mood disturbance, and anxiety; R17 Unspecified jaundice
CPT/HCPCS: 80048; 80061; 80076; 82607; 84443

== ENCOUNTER 2021-05-02 16:53 | Outpatient (CLI) | payer MEDICARE, OTHER, SELFPAY | END 2021-05-02 23:59 | disposition short-term general hospital (02) | PROVIDERS: PCP Family Medicine; Referring Provider Family Medicine; Visit Provider Family Medicine | DX: B34.9 Viral infection, unspecified (principal) | CPT/HCPCS: 87635; U0003; U0005 ==

== ENCOUNTER 2021-05-03 15:27 | Outpatient (CLI) | payer MEDICARE, OTHER, SELFPAY | END 2021-05-03 23:59 | disposition short-term general hospital (02) | LOC: MFPLAB 15:36 | PROVIDERS: PCP Family Medicine; Referring Provider Family Medicine; Visit Provider Family Medicine | DX: Z20.822 Contact with and (suspected) exposure to COVID-19 (principal) | CPT/HCPCS: 87635; U0003; U0005 ==

== ENCOUNTER 2021-06-16 14:36 | Observation (INO) | payer MEDICARE, OTHER, SELFPAY ==
[2021-06-16] VITALS (8 sets, daily range): BP systolic 93–117; BP diastolic 60–74; PULSE 81–138; RESP 16–19; TEMP 36.1–36.9; O2SAT 95–98; BMI 26.0; BMI 24.5
--- NOTE | 2021-06-16 14:53 | CT_ITS ---
STUDY: CT BRAIN WITHOUT CONTRAST REASON FOR EXAM: Male, 70 years old. FALL X 2, HX-TRAUMATIC SUBDURAL HEMATOMA, DEMENTIA confused TECHNIQUE: Transaxial CT imaging of the brain was performed without administration of intravenous contrast material. Individualized dose optimization techniques were used for this CT. COMPARISON: 04.29.20 FINDINGS: Normal calvarium. Normal soft tissues. There is mild cerebral atrophy with widening of the extra-axial spaces and ventricular dilatation. There are areas of decreased attenuation within the white matter tracts of the supratentorial brain, consistent with microvascular disease changes. Normal basal ganglia and thalami. Normal brainstem. Normal cerebellum. There is no intracranial hemorrhage. There are no findings of an acute ischemic infarction. Normal visualized paranasal sinuses. ASPECTS 10 CT/Brain/Head without Contrast IMPRESSION: There are no acute intracranial findings. Electronically Signed: Gurmeet De Luna MD at 15:44 EST ,
--- NOTE | 2021-06-16 14:54 | EKG12_ITS ---
Test Reason : Blood Pressure : / mmHG Vent. Rate : 088 BPM Atrial Rate : 088 BPM P-R Int : 196 ms QRS Dur : 080 ms QT Int : 368 ms P-R-T Axes : 053 037 033 degrees QTc Int : 445 ms Normal sinus rhythm Nonspecific T wave abnormality Abnormal ECG Confirmed by JEMIMA DE LA GARZA, KAYCEE ([id number]), editor news [employer] ([id number]) on 06/18/2021 12:23:37 PM Referred By: MAURY Confirmed By:KAYCEE ONOFRE MD
--- NOTE | 2021-06-16 14:56 | EDS_ITS ---
HPI HPI - Fall History of Present Illness Chief Complaint: Fall Informant: patient Occured/Mechanism Occurred: Today Pain/Injury Pain Location: none Narrative Narrative: 70-year-old male reportedly from home with a history of dementia. Reportedly had falls today and more confused than baseline. Currently there is no family available in the emergency department. Patient is a very limited informant and very difficult to get any type of accurate history from. [facility] Medical History Abdominal pain Chronic cholecystitis with calculus Dementia Gallstones Home Medications donepezil 10 mg PO QHS 06/16/21 [History Last Taken Unknown] memantine 10 mg PO DAILY 06/16/21 [History Last Taken Unknown] rosuvastatin 10 mg PO DAILY 06/16/21 [History Last Taken Unknown] sertraline 50 mg PO QHS 06/16/21 [History Last Taken Unknown] Allergy/AdvReac Type Severity Reaction Status Date / Time No Known Allergies Allergy Verified 06/16/21 14:42 Surgical History History of tonsillectomy S/P ERCP S/P laparoscopic cholecystectomy Social History Smoking Status: Former smoker alcohol intake: never substance use type: does not use ROS ROS ED ROS Narrative Falls. Review of Systems ROS Unobtainable: Denies due to encephalopathy Constitutional Constitutional ED: Denies fever(s) Eyes Eyes: Denies change in vision ENT ENT ED: Denies ear pain Cardiovascular Cardiovascular: Denies chest pain Respiratory/Chest Respiratory/Chest: Denies dyspnea Gastrointestinal Gastrointestinal: Denies abdominal pain Genitourinary Genitourinary ED: Denies dysuria Musculoskeletal Musculoskeletal: Denies myalgias Integumentary Denies rash Neurologic Neurologic: Denies headache(s) Psychiatric Psychiatric: Denies depression Endocrine Endocrinology: Denies polyuria Hematologic/Lymphatic Hematologic/Lymphatic: Denies easy bruising Allergic/Immunologic Allergic/Immunologic ED: Denies urticaria EXAM Physical Exam Narrative Exam Narrative: 70-year-old male with blood pressure 93/67. Otherwise sitting up in bed no acute distress. Pulse ox 96% on room air no hypoxia. H EENT exam dry mucous members. Atraumatic head and scalp. Nontender. Neck nontender. No lymphadenopathy. Lungs clear to auscultation. Heart regular rhythm rate about 90 no murmur. Chest wall nontender. Abdomen soft nontender. Normal bowel sounds no peritoneal signs. Nondistended. Moving all 4 extremities. Nontender. No deformity. Normal stem lead former strength. Normal dorsi plantar flexion. Patient is awake. He is answering questions and following commands but he seems confused in his answers are not specific to the questions. No slurred speech. No motor weakness. Const Vital Signs: 06/16/21 14:37 06/16/21 14:40 06/16/21 15:18 Temperature 97.0 F L 97.8 F Temperature Source Oral Oral Pulse Rate 88 97 85 Respiratory Rate 18 18 18 Respiratory Effort Respiratory Depth Respiratory Pattern Blood Pressure 93/67 93/67 94/66 Blood Pressure Mean 75 75 75 Pulse Ox 96 95 96 Oxygen Delivery Method Room Air Room Air Room Air 06/16/21 15:25 Temperature Temperature Source Pulse Rate Respiratory Rate Respiratory Effort Normal Non-Labored Respiratory Depth Normal Respiratory Pattern Normal Blood Pressure Blood Pressure Mean Pulse Ox Oxygen Delivery Method Positive well nourished and well developed; Negative for obese, cachectic, contractures or unkempt General Appearance ED: well developed and NAD; Negative for unkempt, cachectic or contractures Nutritional Appearance: Negative for cachectic or obese HEENT Reports normocephalic atraumatic; Negative for trauma or tenderness Eyes PERRL and EOMs intact bilaterally Neck full ROM, no lymphadenopathy and supple Chest Wall inspection of chest normal and palpation of chest normal Resp normal respiratory effort, no retractions and clear to auscultation bilaterally Auscultation: Negative for rales, rhonchi or wheezes Cardio regular rate, regular rhythm, S1 normal heart sound, S2 normal heart sound and no murmurs GI non-tender, non-distended and no masses Auscultation: normoactive bowel sounds Palpation: soft; Negative for guarding Back/Spine no CVA tenderness Cervical Spine: Negative for cervical spine tenderness Thoracic Spine / Upper Back: Negative for thoracic spinal tenderness Lumbar Spine / Lower Back: Negative for lumbar spinal tenderness Extremity normal to inspection, full ROM and no joint enlargement Neuro No oriented x3, moves all extremities and no focal motor deficits Neuro Narrative: Confused. Poor informant. Sensorium / Orientation: alert and oriented to person; Negative for oriented to place or oriented to time Psych mental status grossly normal and thought process normal Appearance: Negative for unkempt Mood & Affect: Negative for depressed or tearful Skin Lesions: no lesions and No lesion noted Rashes: no rashes and No rashes noted Trauma: Negative for abrasion or laceration MDM MDM MDM Narrative Medical decision making narrative: 70-year-old male reportedly falls and now more confused than baseline. Patient undergo a septic work-up. He received a liter of fluid. CAT scan and labs. Awaiting family to arrive to obtain further history. Repeat exam patient remains hypotensive with a systolic blood pressure in mid to high 90s. However he is awake alert tolerating it well. His work-up was basically negative other than elevated lactic acid. I do not have a specific source. His white count is normal. As is his chest x-ray and urinalysis. He is currently receiving a liter normal saline. I will speak to the hospitalist about admission. Lab Data Attestation: I reviewed the patient's lab results. Lab results narrative: CBC showed a white count of 10.5. H&H 19 and 54. Normal platelets. PT/INR PTT normal. Electrolytes show a gap of 7 a normal BUN and creatinine. Glucose of 145. Liver enzymes are unremarkable other than a total bilirubin 3.2. Lactic acid is elevated 3.3. Patient's urinalysis is negative. Other than ketones consistent with dehydration. 0 red cells. 0 white cells. 0 bacteria. No nitrites. Labs: Laboratory Results - last 24 hr 06/16/21 06/16/21 06/16/21 14:45 14:45 14:45 WBC 10.5 RBC 6.40 H Hgb 19.2 H* Hct 54.4 H MCV 85.0 MCH 30.0 MCHC 35.3 RDW Std Deviation 39.4 RDW Coeff of Brandee 12.8 Plt Count 333 MPV 8.7 Immature Gran % (Auto) 0.500 Neut % (Auto) 83.3 H Lymph % (Auto) 10.9 L [place] % (Auto) 5.0 Eos % (Auto) 0.1 Baso % (Auto) 0.2 Absolute Neuts (auto) 8.7 H Absolute Lymphs (auto) 1.14 Nucleated RBC % 0 PT 12.3 INR 1.0 APTT 25.3 Sodium 136 Potassium 3.7 Chloride 101 Carbon Dioxide 28.0 Anion Gap 7 BUN 17 Creatinine 1.25 Estim Creat Clear Calc 62.11 Est GFR (MDRD) Af Amer 73 Est GFR (MDRD) Non-Af 60 BUN/Creatinine Ratio 13.6 Glucose 145 H Lactic Acid Calcium 10.1 Total Bilirubin 3.20 H AST 24 ALT 33 Alkaline Phosphatase 110 Troponin I High Sens 20 Total Protein 7.6 Albumin 3.8 Globulin 3.8 Albumin/Globulin Ratio 1.0 Urine Color Urine Clarity Urine pH Ur Specific [place] Urine Protein Urine Glucose (UA) Urine Ketones Urine Occult Blood Urine Nitrite Urine Bilirubin Urine Urobilinogen Ur Leukocyte Esterase Urine RBC Urine WBC Ur Squamous Epith Cells Urine Bacteria Hyaline Casts Urine Mucus 06/16/21 06/16/21 14:45 15:15 WBC RBC Hgb Hct MCV MCH MCHC RDW Std Deviation RDW Coeff of Brandee Plt Count MPV Immature Gran % (Auto) Neut % (Auto) Lymph % (Auto) [place] % (Auto) Eos % (Auto) Baso % (Auto) Absolute Neuts (auto) Absolute Lymphs (auto) Nucleated RBC % PT INR APTT Sodium Potassium Chloride Carbon Dioxide Anion Gap BUN Creatinine Estim Creat Clear Calc Est GFR (MDRD) Af Amer Est GFR (MDRD) Non-Af BUN/Creatinine Ratio Glucose Lactic Acid 3.3 H* Calcium Total Bilirubin AST ALT Alkaline Phosphatase Troponin I High Sens Total Protein Albumin Globulin Albumin/Globulin Ratio Urine Color Yellow Urine Clarity Clear Urine pH 6.0 Ur Specific [place] 1.025 Urine Protein 15 H Urine Glucose (UA) Normal Urine Ketones 50 H Urine Occult Blood Negative Urine Nitrite Negative Urine Bilirubin 1 H Urine Urobilinogen 8 H Ur Leukocyte Esterase 25 H Urine RBC 0-5 SEEN Urine WBC 0-5 SEEN Ur Squamous Epith Cells 0-5 SEEN Urine Bacteria 0 SEEN Hyaline Casts 10-25 SEEN Urine Mucus 1+ Radiography Diagnostic Testing: Clinical Impression(s) from Imaging Studies Brain CT 06/16/21 14:53 IMPRESSION: There are no acute intracranial findings. Electronically Signed: Gurmeet De Luna MD at 15:44 EST Reading Location ID and State: [facility] / [place] , Service support , Chest X-Ray 06/16/21 15:30 IMPRESSION: There are no acute findings. Electronically Signed: Gurmeet De Luna MD at 15:43 EST , Chest x-ray, portable, single view of the remoteness of the radiologist shows no acute abnormality. Normal cardiac silhouette. No infiltrates. Rhythm Strip Rhythm Strip: Sinus Rhythm Rate: 88 Ectopy: None EKG Initial EKG: Attestation: I personally reviewed and interpreted this EKG as follows: Interpretation: Sinus Rhythm and No Acute Injury Pattern Comments: Normal sinus rhythm rate 88 no acute signs of MO nor ischemia. Discharge Plan Dx/Rx/DC Orders Clinical Impression: Falls, Dementia, Acute hypotension, Elevated lactic acid level Disposition Disposition: Acute Care Hospital [facility]
[2021-06-16 15:11] LABS: Prothrombin Time (Protime)PT. 12.3 SECONDS (11.7-14.9)
[2021-06-16 15:12] LABS: Partial Thromboplast Time 25.3 Seconds (24.1-36.2)
[2021-06-16 15:17] LABS: Absolute Lymphocyte Count 1.14 X10^3/uL (0.83-4.51); Absolute Neutrophil Count 8.7 X10^3/uL (2.0-7.7); Basophil# 0.02 X10^3/uL; Basophil% 0.2 % (0-1); Eosinophil# 0.01 X10^3/uL; Eosinophils% 0.1 % (0-5); Hematocrit 54.4 % (40-54); Hemoglobin 19.2 g/dL (13.0-16.5); Lymphocyte # 1.14 X10^3/ul (0.83-4.51); Lymphocyte % 10.9 % (19-41); Mean Corp Hgb Conc 35.3 g/dL (32-36); Mean Platelet Vol. 8.7 fl (6.2-12.0); Monocyte# 0.52 X10^3/uL; NRBC Flagged by Analyzer 0 % (0-5); Neutrophil # 8.73 X10^3/uL (2.7-7.7); Neutrophil % 83.3 % (47-70); Platelet Count 333 K/mm3 (150-450); RBC Distribution Width CV 12.8 % (11.6-14.6); RBC Distribution Width SD 39.4 fl (35.1-43.9); White Blood Count 10.5 K/mm3 (4.4-11.0)
[2021-06-16 15:18] LABS: AST(SGOT) 24 U/L (15-37); Alanine Aminotransfer ALT/SGPT 33 U/L (16-61); Albumin, Serum 3.8 g/dL (3.2-5.0); Alkaline Phosphatase 110 U/L (45-117); Anion Gap 7 (5-15); BUN 17 mg/dL (7-18); BUN/Creat Ratio 13.6 RATIO (10-20); Calcium,Total 10.1 mg/dL (8.5-10.1); Chloride 101 mmol/L (98-107); Creatinine, Serum 1.25 mg/dL (0.70-1.30); EST Glomerular Filtration Rate 60 mL/min (>60); Est Glom Filt Rate - Afr Amer 73 mL/min (>60); Estimated Creatinine Clearance 62.11 ml/min; Globulin 3.8 g/dL (2.2-4.2); Glucose 145 mg/dL (74-106); Potassium 3.7 mmol/L (3.5-5.1); Protein, Total 7.6 g/dL (6.4-8.2); Sodium Level 136 mmol/L (136-145); Troponin-I HS 20 pg/mL (3.0-78.0)
[2021-06-16 15:20] LABS: Bacteria 0 SEEN /hpf (None Seen)
[2021-06-16] MEDS: 0.9% Normal Saline 1,000 ML 999 ML IV (15:24)
--- NOTE | 2021-06-16 15:30 | RAD_ITS ---
STUDY: X-RAY CHEST REASON FOR EXAM: Male, 70 years old. CHEST PAIN ms change TECHNIQUE: XR Chest 1 View COMPARISON: None FINDINGS: There is no demonstrated pleural abnormality. Normal size heart. Normal mediastinum and mata. Normal visualized pulmonary arteries. Normal visualized aortic arch and descending thoracic aorta. There are diffuse degenerative changes of the visualized thoracic spine. Normal visualized ribs, clavicles, and shoulders. There is no demonstrated abnormality of the visualized soft tissue structures of the upper abdomen. RAD/Chest 1 View (Portable) IMPRESSION: There are no acute findings. Electronically Signed: Gurmeet De Luna MD at 15:43 EST ,
[2021-06-16 15:33] LABS: Color, Urine Yellow (Yellow); Glucose, Dipstick Normal (Normal); Ketone-Dipstick 50 mg/dl (Negative); Leukocyte Esterase-Dipstick 25 /ul (Negative); Nitrite-Dipstick Negative (Negative); Occult Blood-Urine Negative /ul (Negative); Protein-Dipstick 15 mg/dl (Negative); Specific Gravity, Urine 1.025 (1.002-1.030); Urine Clarity Clear (Clear); Urine Urobilinogen 8 mg/dl (Normal)
[2021-06-16 15:35] LABS: Lactic Acid 3.3 mmol/L (0.4-1.9)
[2021-06-16 15:37] LABS: Urine Bilirubin Dipstick 1 mg/dL (Negative)
[2021-06-16 15:42] LABS: Squamous Epithelial Cells - UA 0-5 SEEN /hpf (0-5); White Blood Cells 0-5 SEEN /hpf (0-5)
[2021-06-16 15:43] LABS: Mucous, Urine 1+ /hpf (<or=2+)
[2021-06-16 15:44] LABS: Hyaline Cast 10-25 SEEN /lpf (0-5); Red Blood Cells-Urine 0-5 SEEN /hpf (0-5)
--- NOTE | 2021-06-16 16:00 | PCM.HP.STD ---
HPI - General General Date of Admission: 06/16/21 Date of Service: 06/16/21 Chief Complaint: Fall HPI Narrative The patient is a 70 y/o M w/ PMHx: Anxiety and Depression, HLD, Elevated Bilirubin chronically, BPH with history of obstruction status post prostatectomy, Dementia unclear type with unclear behavioral disturbance history who presents to the [facility] ED on 06/16/21 with history of increasing falls over the last several days with concern for increased confusion with suspected poor oral intake especially given evidence of dehydration upon presentation, likely above baseline however family is not present for evaluation and patient is a poor informant. Patient of note was admitted to [place] 1-2 weeks prior with falls and unremarkable work-up at their facility and does report that he did have an MRI that demonstrated no acute stroke but records have been requested. Work-up in the ED included T 98, heart rate 85, BP 94/66, respiratory rate 18, 96% on room air, CBC with WC 10.5, and blood 19.2, platelet 333 with left shift, unremarkable coags, CMP with glucose 145, lactic acid 3.3, total bili 3.20 otherwise not marked appearing, troponin 20, CT of head with no acute intracranial findings, chest x-ray with no acute cardiopulmonary findings, urinalysis with no obvious evidence of UTI but notable evidence of dehydration with elevated specific gravity. [facility] Medical History (Updated 06/16/21 @ 16:[address] Dorys Stafford MD) BPH (benign prostatic hyperplasia) Dementia Home Medications donepezil 10 mg PO QHS 06/16/21 [History Last Taken Unknown] memantine 10 mg PO DAILY 06/16/21 [History Last Taken Unknown] rosuvastatin 10 mg PO DAILY 06/16/21 [History Last Taken Unknown] sertraline 50 mg PO QHS 06/16/21 [History Last Taken Unknown] Allergy/AdvReac Type Severity Reaction Status Date / Time No Known Allergies Allergy Verified 06/16/21 14:42 Family History (Updated 06/16/21 @ 16:[address] Dorys Stafford MD) Father Alzheimer disease Mother CVA (cerebral vascular accident) Heart disease Surgical History (Updated 06/16/21 @ 16:[address] Dorys Stafford MD) History of bladder surgery History of tonsillectomy S/P ERCP S/P laparoscopic cholecystectomy S/P prostatectomy Social History (Updated 06/16/21 @ 16:[address] Dorys Stafford MD) household members: spouse Smoking Status: Never smoker alcohol intake: never substance use type: does not use ROS Review of Systems ROS Unobtainable: due to mental condition Vital Signs Vital Signs Vital Signs: 06/16/21 14:37 06/16/21 14:40 06/16/21 15:18 Temperature 97.0 F L 97.8 F Temperature Source Oral Oral Pulse Rate 88 97 85 Respiratory Rate 18 18 18 Respiratory Effort Respiratory Depth Respiratory Pattern Blood Pressure 93/67 93/67 94/66 Blood Pressure Mean 75 75 75 Pulse Ox 96 95 96 Oxygen Delivery Method Room Air Room Air Room Air 06/16/21 15:25 06/16/21 15:59 Temperature 98.0 F Temperature Source Temporal Pulse Rate 85 Respiratory Rate 18 Respiratory Effort Normal Non-Labored Respiratory Depth Normal Respiratory Pattern Normal Blood Pressure 94/66 Blood Pressure Mean 75 Pulse Ox 96 Oxygen Delivery Method Room Air Weight Weight: 203 lb 0.732 oz Body Mass Index (BMI) 26.0 Physical Exam Narrative Physical Examination: General: Awake, alert, oriented to self and present, remains cooperative, seated upright in the ED bed, NAD, denies any complaints. Skin: Normal color, normal turgor, no icterus, no cyanosis except occasional staged ecchymoses. HEENT: AT/NC, EOMI, PERRLA, dry MM, no carotid bruits or JVD noted. Lungs: Diminished, greater bases, appropriate effort, no rales, ronchi or wheezing. Heart: Currently regular rate and rhythm; no gallop, rub audible. Abdomen: Soft, NTTP, ND, distant mildly hyperactive BS, no HSM. Extremities: No cyanosis, clubbing, or edema. Neurological: Patient awake, alert, oriented as noted, cognitive function diminished baseline with underlying dementia, do suspect near baseline intact; pupils equally reactive to light and accommodation, cranial nerves II-XII grossly normal, moving all 4 extremities, no focal deficits, strength moderately globally decreased. Psychiatric: Affect appears fatigued, mildly flat, no acute evidence of depressive or anxiety feelings. Results Lab / Micro Data Result Diagrams: 06/16/21 14:45 06/16/21 14:45 Labs: Laboratory Results - last 24 hr 06/16/21 14:45: WBC 10.5, RBC 6.40 H, Hgb 19.2 H*, Hct 54.4 H, MCV 85.0, MCH 30.0, MCHC 35.3, RDW Std Deviation 39.4, RDW Coeff of Brandee 12.8, Plt Count 333, MPV 8.7, Immature Gran % (Auto) 0.500, Neut % (Auto) 83.3 H, Lymph % (Auto) 10.9 L, [place] % (Auto) 5.0, Eos % (Auto) 0.1, Baso % (Auto) 0.2, Absolute Neuts (auto) 8.7 H, Absolute Lymphs (auto) 1.14, Nucleated RBC % 0 06/16/21 14:45: PT 12.3, INR 1.0, APTT 25.3 06/16/21 14:45: Sodium 136, Potassium 3.7, Chloride 101, Carbon Dioxide 28.0, Anion Gap 7, BUN 17, Creatinine 1.25, Estim Creat Clear Calc 62.11, Est GFR (MDRD) Af Amer 73, Est GFR (MDRD) Non-Af 60, BUN/Creatinine Ratio 13.6, Glucose 145 H, Calcium 10.1, Total Bilirubin 3.20 H, AST 24, ALT 33, Alkaline Phosphatase 110, Troponin I High Sens 20, Total Protein 7.6, Albumin 3.8, Globulin 3.8, Albumin/Globulin Ratio 1.0 06/16/21 14:45: Lactic Acid 3.3 H* 06/16/21 15:15: Urine Color Yellow, Urine Clarity Clear, Urine pH 6.0, Ur Specific [place] 1.025, Urine Protein 15 H, Urine Glucose (UA) Normal, Urine Ketones 50 H, Urine Occult Blood Negative, Urine Nitrite Negative, Urine Bilirubin 1 H, Urine Urobilinogen 8 H, Ur Leukocyte Esterase 25 H, Urine RBC 0-5 SEEN, Urine WBC 0-5 SEEN, Ur Squamous Epith Cells 0-5 SEEN, Urine Bacteria 0 SEEN, Hyaline Casts 10-25 SEEN, Urine Mucus 1+ Rhythm Strip Rhythm Strip: Sinus Rhythm Rate: 88 Ectopy: None Radiology Impression Brain CT 06/16/21 14:53 IMPRESSION: There are no acute intracranial findings. Electronically Signed: Gurmeet De Luna MD at 15:44 EST , Chest X-Ray 06/16/21 15:30 IMPRESSION: There are no acute findings. Electronically Signed: Gurmeet De Luna MD at 15:43 EST , Assessment & Plan Assessment/Plan (1) Falls: QUALIFIERS: Encounter type: initial encounter Qualified Code(s): W19.XXXA - Unspecified fall, initial encounter (2) Acute hypotension: (3) Elevated lactic acid level: PLAN: The patient is a 70 y/o M w/ PMHx: Anxiety and Depression, HLD, Elevated Bilirubin chronically, BPH with history of obstruction status post prostatectomy, Dementia unclear type with unclear behavioral disturbance history who presents to the [facility] ED on 06/16/21 with history of increasing falls over the last several days with concern for increased confusion with suspected poor oral intake especially given evidence of dehydration upon presentation. #1. Mild hypotension with falls with lactic acidosis, suspect secondary to dehydration failure to thrive in adult: We will admit to medical surgical floor, maintain on fall precautions as well as aspiration precautions, continue hydration, trend lactic acid per facility protocol, low suspicion for any infection however urine culture and blood culture are pending per ED, will add procalcitonin level, plan repeat CBC, CMP in a.m., will have PT/OT/case management consultations for discharge planning, will obtain orthostatic VS, cortisol to be cautious. #2. Elevated bilirubin: Elevated bilirubin to 3.20, previously elevated in the past however patient has since had cholecystectomy, will judiciously hydrate, repeat CMP in a.m. and if still elevated may necessitate imaging and further evaluation. #3. Hyperglycemia: Admission glucose 145, likely stress response but will obtain hemoglobin A1c be cautious. #4. Dementia, unclear type with unclear behavioral disturbance history: Complicates presentation, maintain on fall and aspiration precautions, will continue frequent positional changes, therapies and case management/social work consult and is noted for discharge planning. We will continue patient home memantine and donepezil regimen. #5. Anxiety and depression: We will continue patient on sertraline regimen. #6. Hyperlipidemia: We will continue patient home low-dose statin therapy. Hold if any further concerns with CMP repeat. #7. DVT prophylaxis: SCDs, Lovenox. #8. CODE status: Patient PRAVEEN is his who is present and living will is currently in place. Discussed CODE status at length including difference between FULL code, DNR-CCA and DNR-CC status. Following discussions about the differences in these status, requested Full Code status. Advanced Care Planning Face to Face Time: 16 minutes. Charges/Coding Visit Charges OBSV E&M: 60806 Initial observation care L2 Procedures Hospitalists Procedures: 29056 Advncd Care Plan 30 Min
[2021-06-16 17:11] LABS: Phosphorus 2.7 mg/dL (2.5-4.9)
[2021-06-16 17:32] LABS: Procalcitonin 0.11 ng/mL (0.00-0.09)
[2021-06-16] MEDS: 0.9% Normal Saline 1,000 ML 125 ML IV (17:43)
[2021-06-16] MEDS: CLARIFY ORDER NOTE (17:49)
[2021-06-16 19:01] LABS: Reflex Lactate? Y
[2021-06-16 21:15] LABS: Lactic Acid 2.6 mmol/L (0.4-1.9)
[2021-06-16] MEDS: Donepezil HCl 10 MG Tablet PO (23:09)
[2021-06-16] MEDS: Sertraline 50 MG Tablet PO (23:09)
[2021-06-16] MEDS: Atorvastatin Calcium 20 MG Tablet PO (23:09)
[2021-06-16] MEDS: Memantine Hydrochloride 10 MG Tablet PO (23:09)
[2021-06-16] MEDS: Menthol/Lanolin/Calamine/Znox 113 GM Tube 1 APPLIC TOPICAL (23:10)
[2021-06-16] MEDS: Nystatin Powder 15gm Bottle 1 APPLIC TOPICAL (23:10)
[2021-06-16] MEDS: MELATONIN 3 MG TABLET PO (23:23)
[2021-06-16] MEDS: Acetaminophen 325 MG Tablet 650 MG PO (23:23)
[2021-06-17] VITALS (11 sets, daily range): BP systolic 95–111; BP diastolic 63–74; PULSE 54–88; RESP 16–18; TEMP 36.5–36.8; O2SAT 95–99
[2021-06-17] MEDS: 0.9% Normal Saline 1,000 ML 125 ML IV ×2 (01:55→09:55)
[2021-06-17 06:51] LABS: Absolute Lymphocyte Count 1.47 X10^3/uL (0.83-4.51); Absolute Neutrophil Count 4.9 X10^3/uL (2.0-7.7); Basophil# 0.01 X10^3/uL; Basophil% 0.1 % (0-1); Eosinophil# 0.08 X10^3/uL; Eosinophils% 1.1 % (0-5); Hemoglobin 15.5 g/dL (13.0-16.5); Lymphocyte # 1.47 X10^3/ul (0.83-4.51); Lymphocyte % 20.5 % (19-41); Mean Corp Hgb Conc 35.2 g/dL (32-36); Mean Corpuscular Volume 85.1 fL (80-94); Mean Platelet Vol. 8.5 fl (6.2-12.0); Monocyte# 0.65 X10^3/uL; Monocyte% 9.1 % (0-10); NRBC Flagged by Analyzer 0 % (0-5); Neutrophil # 4.92 X10^3/uL (2.7-7.7); Neutrophil % 68.6 % (47-70); Platelet Count 221 K/mm3 (150-450); RBC Distribution Width CV 13.2 % (11.6-14.6); RBC Distribution Width SD 40.5 fl (35.1-43.9); Red Blood Count 5.17 M/mm3 (4.6-6.2); White Blood Count 7.2 K/mm3 (4.4-11.0)
[2021-06-17 07:25] LABS: ALB/GLOB Ratio 0.9 RATIO (0.9-2.4); AST(SGOT) 16 U/L (15-37); Alanine Aminotransfer ALT/SGPT 23 U/L (16-61); Albumin, Serum 2.6 g/dL (3.2-5.0); Alkaline Phosphatase 75 U/L (45-117); Anion Gap 4 (5-15); BUN 20 mg/dL (7-18); BUN/Creat Ratio 28.7 RATIO (10-20); Calcium,Total 8.4 mg/dL (8.5-10.1); Chloride 108 mmol/L (98-107); EST Glomerular Filtration Rate 118 mL/min (>60); Est Glom Filt Rate - Afr Amer 143 mL/min (>60); Estimated Creatinine Clearance 79.81 ml/min; Globulin 2.9 g/dL (2.2-4.2); Glucose 99 mg/dL (74-106); Potassium 3.3 mmol/L (3.5-5.1); Protein, Total 5.5 g/dL (6.4-8.2); Sodium Level 139 mmol/L (136-145)
[2021-06-17] MEDS: Nystatin Powder 15gm Bottle 1 APPLIC TOPICAL ×2 (12:12→22:23)
[2021-06-17] MEDS: Memantine Hydrochloride 10 MG Tablet PO ×2 (12:12→22:21)
[2021-06-17] MEDS: Menthol/Lanolin/Calamine/Znox 113 GM Tube 1 APPLIC TOPICAL ×2 (12:13→22:22)
[2021-06-17] MEDS: Enoxaparin 30 MG/0.3 ML Syringe SC (12:13)
--- NOTE | 2021-06-17 13:40 | PCM.PN.HOSP ---
Subjective Subjective Patient is confused to time, place, person and situation. No fever. Objective Data Objective Data Vital Signs: Vital Signs Temp Pulse Resp BP Pulse Ox 98.2 F 83 16 95/63 99 06/17/21 13:06 06/17/21 13:06 06/17/21 13:06 06/17/21 13:06 06/17/21 13:06 Oxygen Delivery Method Room Air Weight: 207 lb 0.225 oz Body Mass Index (BMI) 24.5 Intake & Output: Intake and Output for Last 24 Hours 06/15/21 06/16/21 06/17/21 23:59 23:59 23:59 Intake Total 1120 / 1120 2119 Output Total 200 / 200 Balance 920 / 920 2119 Lab / Micro Data Result Diagrams: 06/17/21 06:34 06/17/21 06:34 Labs: Laboratory Results - last 24 hr 06/16/21 14:45: WBC 10.5, RBC 6.40 H, Hgb 19.2 H*, Hct 54.4 H, MCV 85.0, MCH 30.0, MCHC 35.3, RDW Std Deviation 39.4, RDW Coeff of Brandee 12.8, Plt Count 333, MPV 8.7, Immature Gran % (Auto) 0.500, Neut % (Auto) 83.3 H, Lymph % (Auto) 10.9 L, Walker % (Auto) 5.0, Eos % (Auto) 0.1, Baso % (Auto) 0.2, Absolute Neuts (auto) 8.7 H, Absolute Lymphs (auto) 1.14, Nucleated RBC % 0 06/16/21 14:45: PT 12.3, INR 1.0, APTT 25.3 06/16/21 14:45: Sodium 136, Potassium 3.7, Chloride 101, Carbon Dioxide 28.0, Anion Gap 7, BUN 17, Creatinine 1.25, Estim Creat Clear Calc 62.11, Est GFR (MDRD) Af Amer 73, Est GFR (MDRD) Non-Af 60, BUN/Creatinine Ratio 13.6, Glucose 145 H, Calcium 10.1, Total Bilirubin 3.20 H, AST 24, ALT 33, Alkaline Phosphatase 110, Troponin I High Sens 20, Total Protein 7.6, Albumin 3.8, Globulin 3.8, Albumin/Globulin Ratio 1.0 06/16/21 14:45: Lactic Acid 3.3 H* 06/16/21 14:45: Phosphorus 2.7, Magnesium 2.0 06/16/21 15:15: Urine Color Yellow, Urine Clarity Clear, Urine pH 6.0, Ur Specific [place] 1.025, Urine Protein 15 H, Urine Glucose (UA) Normal, Urine Ketones 50 H, Urine Occult Blood Negative, Urine Nitrite Negative, Urine Bilirubin 1 H, Urine Urobilinogen 8 H, Ur Leukocyte Esterase 25 H, Urine RBC 0-5 SEEN, Urine WBC 0-5 SEEN, Ur Squamous Epith Cells 0-5 SEEN, Urine Bacteria 0 SEEN, Hyaline Casts 10-25 SEEN, Urine Mucus 1+ 06/16/21 16:53: Procalcitonin 0.11 H 06/16/21 20:28: Lactic Acid 2.6 H* 06/17/21 06:34: WBC 7.2, RBC 5.17, Hgb 15.5, Hct 44.0, MCV 85.1, MCH 30.0, MCHC 35.2, RDW Std Deviation 40.5, RDW Coeff of Brandee 13.2, Plt Count 221, MPV 8.5, Immature Gran % (Auto) 0.600, Neut % (Auto) 68.6, Lymph % (Auto) 20.5, Walker % (Auto) 9.1, Eos % (Auto) 1.1, Baso % (Auto) 0.1, Absolute Neuts (auto) 4.9, Absolute Lymphs (auto) 1.47, Nucleated RBC % 0 06/17/21 06:34: Sodium 139, Potassium 3.3 L, Chloride 108 H, Carbon Dioxide 27.0, Anion Gap 4 L, BUN 20 H, Creatinine 0.70, Estim Creat Clear Calc 79.81, Est GFR (MDRD) Af Amer 143, Est GFR (MDRD) Non-Af 118, BUN/Creatinine Ratio 28.7 H, Glucose 99, Calcium 8.4 L, Total Bilirubin 1.70 H, AST 16, ALT 23, Alkaline Phosphatase 75, Total Protein 5.5 L, Albumin 2.6 L, Globulin 2.9, Albumin/Globulin Ratio 0.9 Micro: Microbiology 06/16/21 15:15 Urine Catheter - Catheter Urine Culture - Preliminary Culture exhibits no growth. Radiography Diagnostic Testing: Radiology Impression Brain CT 06/16/21 14:53 IMPRESSION: There are no acute intracranial findings. Chest X-Ray 06/16/21 15:30 IMPRESSION: There are no acute findings. Rhythm Strip Rhythm Strip: Sinus Rhythm Rate: 88 Ectopy: None Physical Exam Narrative Patient also had multiple fall but he said he does not remember. General: Disoriented, confused, somnolent. HEENT: Atraumatic, PERRLA, EOMI, Normocephalic Oral: No Gingival or Mucosal Lesions/ Ulcerations Neck: Supple, No JVD, Negative Carotid Bruits Lungs: Air entry diminished in bilateral lung bases. No crepitation/rhonchi Cardiovascular: Low blood pressure. Regular rate, Regular Rhythm, Normal S1, Normal S2, No murmurs Abdomen: Bowel Sounds Present, Soft, Non Tender, Non-Distended : No renal angle tenderness. No suprapubic tenderness. Extremities: No edema, Capillary Refill Less than 3 Seconds Skin: No rashes, No breakdown Musculoskeletal: No Tenderness to Palpation of Joints or Extremities Neurological: Cranial nerves II-XII grossly intact, DTR 2+/4. Muscle strength 4+/5 at major joints at knee and hip joints. Psych/Mental Status: Normal Affect, Appropriate. Assessment & Plan Assessment/Plan (1) Falls: QUALIFIERS: Encounter type: initial encounter Qualified Code(s): W19.XXXA - Unspecified fall, initial encounter (2) Acute hypotension: (3) Elevated lactic acid level: PLAN: The patient is a 70 y/o M was admitted with increased fall over last several days, confusion and needed failure to thrive. #1. Falls with lactic acidosis with mild hypotension and entered failure to thrive: [facility]. Blood pressure profile reviewed. His systolic blood pressure was in 120s to 130s in 2018. After that his blood pressure was low in the 110s to 100s. Orthostatic blood pressure did not show decrease. Currently 111/68, 95/63. Patient denies dizziness. Patient was on 125 mill per hour. Patient is lactic acidosis probably related to hypoperfusion/dehydration. Procalcitonin 0.11 slightly elevated. Afebrile. UA shows WBC 0-5 cells, LE 25, nitrite negative. Urine culture no growth. Chest x-ray and CT brain does not show acute abnormality. PT and OT, caser consult for discharge planning. Hypokalemia: Potassium is being replaced. Monitor BMP. Phosphorus on low normal, 2.7. Phosphorus replaced. #2. Elevated bilirubin: Total bilirubin 3.20, chronically elevated since cholecystectomy. #3. Hyperglycemia: Glucose fluctuates between 99-145. A1c ordered. #4. Dementia, unclear type with behavioral disturbance exact type unclear: Will need follow-up in dementia clinic/neurologist. Possible consideration will be frontotemporal dementia/dementia of Lewy body. #5. Anxiety and depression: continue patient on sertraline regimen. #6. Hyperlipidemia: l continue patient home low-dose statin therapy. Hold if any further concerns with CMP repeat. #7. DVT prophylaxis: SCDs, Lovenox. #8. CODE status: Full code Charges/Coding Visit Charges Inpatient E&M: 48112 Subs Hosp L2
[2021-06-17] MEDS: Potassium Chloride Oral Tablet 20 MEQ 40 MEQ PO (15:55)
[2021-06-17] MEDS: Na Biphos/Potassium Phosphate PACKET 1 PACKET PO ×2 (15:56→22:22)
--- NOTE | 2021-06-17 17:37 | NURSING ---
Pt agitated when this nurse attempted to give potassium pills in ice cream. Pt said he did not need it. Pt stated he was full. Educated on importance of taking replacement and pt started to get agitated. I dont think I need it.
[2021-06-17] MEDS: Donepezil HCl 10 MG Tablet PO (22:21)
[2021-06-17] MEDS: Atorvastatin Calcium 20 MG Tablet PO (22:21)
[2021-06-17] MEDS: Sertraline 50 MG Tablet PO (22:22)
[2021-06-17] MEDS: Acetaminophen 325 MG Tablet 650 MG PO (22:32)
[2021-06-17] MEDS: MELATONIN 3 MG TABLET PO (22:32)
[2021-06-18] VITALS (7 sets, daily range): BP systolic 102–117; BP diastolic 65–84; PULSE 58–78; RESP 16–18; TEMP 36.3–36.8; O2SAT 95–100
[2021-06-18 06:50] LABS: Absolute Neutrophil Count 4.2 X10^3/uL (2.0-7.7); Basophil# 0.01 X10^3/uL; Basophil% 0.1 % (0-1); Eosinophil# 0.14 X10^3/uL; Eosinophils% 2.1 % (0-5); Hematocrit 43.6 % (40-54); Hemoglobin 15.2 g/dL (13.0-16.5); Lymphocyte % 26.7 % (19-41); Mean Corp Hgb Conc 34.9 g/dL (32-36); Mean Platelet Vol. 8.7 fl (6.2-12.0); Monocyte# 0.62 X10^3/uL; Monocyte% 9.2 % (0-10); NRBC Flagged by Analyzer 0 % (0-5); Neutrophil # 4.15 X10^3/uL (2.7-7.7); Neutrophil % 61.8 % (47-70); Platelet Count 228 K/mm3 (150-450); RBC Distribution Width CV 13.3 % (11.6-14.6); RBC Distribution Width SD 41.1 fl (35.1-43.9); Red Blood Count 5.07 M/mm3 (4.6-6.2); White Blood Count 6.7 K/mm3 (4.4-11.0)
[2021-06-18 07:20] LABS: Anion Gap 1 (5-15); BUN 16 mg/dL (7-18); BUN/Creat Ratio 24.4 RATIO (10-20); Calcium,Total 8.6 mg/dL (8.5-10.1); Chloride 108 mmol/L (98-107); Creatinine, Serum 0.66 mg/dL (0.70-1.30); EST Glomerular Filtration Rate 127 mL/min (>60); Est Glom Filt Rate - Afr Amer 153 mL/min (>60); Estimated Creatinine Clearance 79.81 ml/min; Glucose 100 mg/dL (74-106); Potassium 3.8 mmol/L (3.5-5.1); Sodium Level 139 mmol/L (136-145)
[2021-06-18 07:29] LABS: Phosphorus 3.1 mg/dL (2.5-4.9)
[2021-06-18 07:33] LABS: Hemoglobin A1c 5.1 % (3.8-5.6)
--- NOTE | 2021-06-18 07:59 | PCA ---
received medical records from roberto michele
[2021-06-18] MEDS: Menthol/Lanolin/Calamine/Znox 113 GM Tube 1 APPLIC TOPICAL ×2 (09:41→20:26)
[2021-06-18] MEDS: Nystatin Powder 15gm Bottle 1 APPLIC TOPICAL ×2 (09:41→20:26)
[2021-06-18] MEDS: Enoxaparin 30 MG/0.3 ML Syringe SC (09:41)
[2021-06-18] MEDS: Memantine Hydrochloride 10 MG Tablet PO ×2 (09:42→20:25)
[2021-06-18] MEDS: Na Biphos/Potassium Phosphate PACKET 1 PACKET PO ×2 (09:42→20:25)
--- NOTE | 2021-06-18 13:10 | CASEMGMT ---
Social Work Assessment SW reviewed chart. Pt is confused and pt's Rama is requesting SNF placement. Personal Status: SW placed a call to pt's Rama to complete initial assessment an discuss discharge planning. SW introduced self and role at [facility] to Rama. Rama participated in assessment and answered questions appropriately. Living Arrangements: Rama states that she and pt live in a two story home together. Rama states that pt is able to go up and down the steps. ADLs: Rama states that she assists pt with all ADLs. Transportation: Rama states she provides transportation PCP: Papito Echevarria [facility]acy: [facility] Advanced Directives: Rama states pt has completed HCPOA and LW and states she is HCPOA Mental Health Hx: Rama states none Substance Abuse Hx: Rama states none SNF: None HHC: None SW spoke with Rama regarding discharge plans. Rama states she would like for pt to go to SNF. Rama was verbally provided a list of SNF providers including quality and resource use data and consistent with the patient?s preferred geographic region, medical needs, and insurance network. Rama states [facility] close to them and preferred provider is [facility]. SW explained referral process. Plan: SNF pending acceptance Zahra Padilla GAS ANALYST, CONCRETE PIPE MAKING MACHINE OPERATOR
--- NOTE | 2021-06-18 13:51 | CASEMGMT ---
RN OSVALDO called to completed CARDONA form as patient is confused. RN OSVALDO explained CARDONA form to , Rama. Rama voiced understanding and gave telephone consent over the phone. RN OSVALDO filed consented CARDONA form in chart and provided copy to and patient. had no further questions or concerns at this time.
--- NOTE | 2021-06-18 14:00 | CASEMGMT ---
Addendum entered by Nicole Rojas 06/18/21 15:52: Called [facility] and spoke with Werner. Nathalie was unavailable. I asked for Werner to give her a message to call me back. Addendum entered by Nicole Rojas 06/18/21 14:05: Will follow up with admissions. Original Note: Discharge Retail Loan Originator Assistant Faxed over referral paperwork to Nathalie in Admissions to [facility].
--- NOTE | 2021-06-18 16:16 | PN.HOSP_ITS ---
Subjective Subjective No issues overnight. Patient remains confused however has dementia at baseline. Has been having falls and debility at home. So has some behavioral disturbances at baseline. Oral intake has improved. Blood pressure has improved. Labs overall have normalized. Family is requesting skilled facility placement Objective Data Objective Data Vital Signs: Vital Signs Temp Pulse Resp BP Pulse Ox 98.0 F 71 16 107/65 100 06/18/21 13:52 06/18/21 13:52 06/18/21 13:52 06/18/21 13:52 06/18/21 13:52 Oxygen Delivery Method Room Air Weight: 93.9 kg Body Mass Index (BMI) 24.5 Intake & Output: Intake and Output for Last 24 Hours 06/16/21 06/17/21 06/18/21 23:59 23:59 23:59 Intake Total 1120 / 1120 3294.17 / 3294.17 Output Total 200 / 200 100 / 100 625 / 625 Balance 920 / 920 3194.17 / 3194.17 -625 / -625 Lab / Micro Data Result Diagrams: 06/18/21 06:40 06/18/21 06:40 Labs: Laboratory Results - last 24 hr 06/17/21 06:34: Cortisol 10.60 06/18/21 06:40: WBC 6.7, RBC 5.07, Hgb 15.2, Hct 43.6, MCV 86.0, MCH 30.0, MCHC 34.9, RDW Std Deviation 41.1, RDW Coeff of Brandee 13.3, Plt Count 228, MPV 8.7, Immature Gran % (Auto) 0.100, Neut % (Auto) 61.8, Lymph % (Auto) 26.7, [place] % (Auto) 9.2, Eos % (Auto) 2.1, Baso % (Auto) 0.1, Absolute Neuts (auto) 4.2, Absolute Lymphs (auto) 1.80, Nucleated RBC % 0 06/18/21 06:40: Sodium 139, Potassium 3.8, Chloride 108 H, Carbon Dioxide 30.0, Anion Gap 1 L, BUN 16, Creatinine 0.66 L, Estim Creat Clear Calc 79.81, Est GFR (MDRD) Af Amer 153, Est GFR (MDRD) Non-Af 127, BUN/Creatinine Ratio 24.4 H, Glucose 100, Calcium 8.6 02/28/22 06:40: Hemoglobin A1c 5.1 06/18/21 06:40: Phosphorus 3.1 Micro: Microbiology 06/18/21 14:00 Nasal Secretion SARS-CoV-2 Antigen (Rapid) - Final 06/16/21 14:45 Blood Culture (Wb) - Anticubital Right Blood Culture - Preliminary No growth in 48 hours. 06/16/21 15:15 Urine Catheter - Catheter Urine Culture - Preliminary Culture exhibits no growth. Rhythm Strip Rhythm Strip: Sinus Rhythm Rate: 88 Ectopy: None Physical Exam Const alert, no apparent distress, average body habitus, healthy appearing and well nourished Constitutional Narrative: Significantly confused and oriented only to self, nursing at bedside, patient appears comfortable and nontoxic Exam Limitations: altered mental status HEENT head/scalp atraumatic, moist oral mucous membranes and oropharynx normal HEENT Narrative: No thrush, Mallampati is 2 Head and Scalp: normocephalic Resp normal respiratory effort, no retractions, no use of accessory muscles and clear to auscultation bilaterally Auscultation: Negative for crackles, rales, rhonchi or wheezes Cardio regular rate, regular rhythm, S1 normal heart sound, S2 normal heart sound, no murmurs, no rub, no gallops, no clicks and no JVD GI normal to inspection, nondistended, normoactive bowel sounds, soft to palpation, non-tender and non-distended; Negative for hepatosplenomegaly Extremity no clubbing, cyanosis or edema Peripheral Pulses: Yes pulses 2+ throughout Neuro CN's II-XII intact bilaterally, moves all extremities and no focal motor deficits Neuro Narrative: Confused and oriented only to self Sensorium / Orientation: awake and alert Speech: speech normal Assessment & Plan Assessment/Plan (1) Acute hypotension: (2) Hypokalemia: (3) Falls: QUALIFIERS: Encounter type: initial encounter Qualified Code(s): W19.XXXA - Unspecified fall, initial encounter (4) Elevated lactic acid level: PLAN: Acute hypotension-resolved -Suspect related to volume depletion -Blood pressures have remained stable -Continue to monitor -Patient did have some relative serum creatinine elevation which has resolved as well -Urine culture is negative -Covid test is negative -Blood cultures are no growth to date Lactic acidosis -Resolved -Suspect related to p.o. intake being poor Falls -Suspect related to progressing dementia -Continue therapy services -Skilled facility placement pending Hypokalemia -Resolved Hyperlipidemia -Continue Crestor Dementia with behavioral disturbances -Continue Aricept -Continue Namenda -We will recommend palliative care follow-up at the skilled facility after discharge as I suspect the patient is high risk for readmissions with progressively worsening dementia -CT of brain done on admission showed mild cerebral atrophy with widening of the extra-axial spaces and ventricular dilation Depression -Continue sertraline DVT prophylaxis -Continue enoxaparin -Continue SCDs CODE STATUS -Full code Patient is medically stable for discharge and we are waiting approval for placement Charges/Coding Visit Charges Inpatient E&M: 57064 Subs Hosp L2
[2021-06-18] MEDS: Acetaminophen 325 MG Tablet 650 MG PO (20:25)
[2021-06-18] MEDS: Sertraline 50 MG Tablet PO (20:25)
[2021-06-18] MEDS: Donepezil HCl 10 MG Tablet PO (20:25)
[2021-06-18] MEDS: Atorvastatin Calcium 20 MG Tablet PO (20:25)
[2021-06-18] MEDS: MELATONIN 3 MG TABLET PO (20:25)
[2021-06-19 06:10] VITALS: BP 122/65; PULSE 62; RESP 16; TEMP 36.7; O2SAT 98
--- NOTE | 2021-06-19 08:43 | CASEMGMT ---
Social Work SW called Nathalie at [facility] and left a message regarding referral. MC Varela
--- NOTE | 2021-06-19 09:43 | CASEMGMT ---
Addendum entered by Ileana Bates 06/19/21 10:08: SW on MS3 did verify pt's birthdate. SW called our financial dept. They were able to run pt's insurance and did find pt to be eligible. She advised for the intermediate to make sure to include the JR at the end of pt's name. SISI called [facility] back and let Nathalie know this. The will try to run the insurance again and let SW know. SISI will continue to follow. MC Varela Original Note: Social Work SW received call back from Nathalie at [facility], they cannot validate pt's insurance. SW left a message for SW on MS3 to verify his birthdate. MC Varela
[2021-06-19 10:10] VITALS: BP 119/67; PULSE 59; RESP 18; TEMP 37; O2SAT 98
--- NOTE | 2021-06-19 10:14 | CASEMGMT ---
Addendum entered by Zahra Padilla 06/19/21 10:37: SISI updated Rama that [facility] has accepted pt, pt to discharge to [facility] today. Rama states understanding. Original Note: Social Work Note SISI updated that [facility] is having difficult time confirming pt's Medicare. SW in to speak with pt and pt's Rama present in room. SISI asked Rama for copy of pt's Medicare card. Rama states she only has copy of pt's [employer] card, not sure where pt's Medicare card is at. Rama confirms pt's date is 1950. SISI copied pt's AAR Medicare Card. SISI reviewed chart, AAR Medicare card is on file already at [facility]. SISI placed a call to [facility] and spoke with Maria Luz. Maria Luz states that pt is active with Medicare, name on Subscriber is Dinesh Aparicio JR. SISI placed a call back to [facility] and spoke with Nathalie and updated her on name on Medicare. Nathalie states she is having business office check name. SISI received call from Nathalie at [facility] stating Medicare has been confirmed, pt can discharge to [facility] today. SISI updated physician. Plan: [facility] skilled today Zahra Padilla ENGINEERING ADMINISTRATOR, HELICOPTER REPAIRER
[2021-06-19] MEDS: Menthol/Lanolin/Calamine/Znox 113 GM Tube 1 APPLIC TOPICAL (10:19)
[2021-06-19] MEDS: Memantine Hydrochloride 10 MG Tablet PO (10:20)
[2021-06-19] MEDS: Nystatin Powder 15gm Bottle 1 APPLIC TOPICAL (10:20)
[2021-06-19] MEDS: Enoxaparin 30 MG/0.3 ML Syringe SC (10:20)
--- NOTE | 2021-06-19 10:52 | PCM.DC.SUM ---
Providers Date of Admission: 06/16/21 Primary Care Physician: Dr. Papito Echevarria MD Reason For Visit: FALLS, FTT ADULT, DEHYDRATION Diagnosis Discharge Diagnosis (1) Acute hypotension: Status: Acute Code(s): I95.9 - Hypotension, unspecified (2) Hypokalemia: Status: Acute Code(s): E87.6 - Hypokalemia (3) Falls: Status: Acute Code(s): W19.XXXA - Unspecified fall, initial encounter Qualifiers: Encounter type: initial encounter Qualified Code(s): W19.XXXA - Unspecified fall, initial encounter (4) Elevated lactic acid level: Status: Acute Code(s): R79.89 - Other specified abnormal findings of blood chemistry Medications at Discharge Home Medications donepezil 10 mg PO QHS 06/16/21 memantine 10 mg PO BID 06/16/21 rosuvastatin 10 mg PO DAILY 06/16/21 sertraline 50 mg PO QHS 06/16/21 acetaminophen [Tylenol] 650 mg PO Q4H PRN PRN #0 tab 06/19/21 melatonin 3 mg PO QHS PRN PRN #0 tab 06/19/21 menthol-zinc oxide [Calmoseptine] 1 applic TOPICAL BID #0 g 06/19/21 Hospital Course Operations None Procedures None and - Summary of Care Provided Minutes Spent on Discharge: 37 Hospital Course: Mr. Aparicio is a 70-year-old white male with a marked history of dementia and behavioral disturbances who presented to the emergency department was [facility] on 06/16/2021 with a history of increasing falls over the last several days prior to admission with increased confusion and poor oral intake. Unfortunately family was not present upon initial evaluation and the patient was a poor informant and history was limited. The patient had evidently been admitted to [facility] 1 to 2 weeks prior with falls and had an unremarkable work-up at that facility. The did report to the emergency department that he had an MRI that demonstrated no acute infarct. His work-up in the emergency department showed unremarkable vitals other than borderline blood pressure at 94/66. His CBC was overall unremarkable. His BMP showed a normal BUN and creatinine however they were higher than his baseline, a lactic acid of 3.3, total bilirubin of 3.2 and normal troponins. A CT of his head showed no acute intracranial findings but did reveal cerebral atrophy with widening of the extra-axial spaces and ventricular dilation. He is on Aricept and Namenda at baseline and these were maintained during his hospitalization. He was given IV fluids and his lactic acid did resolve. It suspected that this was most likely related to his dehydration. Urine and blood cultures were performed and were negative. A Covid test was performed and was negative. His blood pressure improved and on the day of discharge was 119/67. He had hypokalemia during his hospitalization that resolved with oral replacement. He does show evidence of significant dementia but had no behavioral disturbances during his hospitalization here. He was seen by physical therapy and additional therapy was recommended he had gait impairment and needed contact-guard to minimal assist of 1 with ambulation to maintain stability and was markedly impulsive. His is concerned because of his recurrent falls and requested placement as she is no longer able to care for him safely at home. His general work-up here other than noted above was overtly negative. He was discharged to [facility] in stable condition on 06/19/2021. Discharge diagnoses: Acute hypotension-resolved Lactic acidosis-resolved Hypokalemia-resolved Falls Hyperlipidemia Dementia with behavioral disturbances Depression Physical Exam Const alert, no apparent distress, average body habitus, healthy appearing and well nourished Constitutional Narrative: Sleeping but awakens easily, significantly confused and oriented only to self, patient appears comfortable and nontoxic General Appearance: cooperative, comfortable, well kempt and well developed Exam Limitations: altered mental status HEENT normocephalic, head/scalp atraumatic, moist oral mucous membranes and oropharynx normal HEENT Narrative: Mildly hard of hearing, Mallampati is 2, dentition is fair for age, no thrush Eyes PERRL, EOMs intact bilaterally and conjunctivae normal Eyes Narrative: No scleral Neck no lymphadenopathy, supple and no JVD Neck Narrative: Trachea midline, no thyroid enlargement Resp normal respiratory effort, no retractions, no use of accessory muscles and clear to auscultation bilaterally Auscultation: Negative for crackles, rales, rhonchi or wheezes Cardio regular rate, regular rhythm, S1 normal heart sound, S2 normal heart sound, no murmurs, no rub, no gallops, no clicks and no JVD GI normal to inspection, nondistended, normoactive bowel sounds, soft to palpation, non-tender and non-distended; Negative for hepatosplenomegaly Extremity no clubbing, cyanosis or edema Skin no rashes or lesions noted, skin turgor normal and no jaundice Neuro CN's II-XII intact bilaterally, moves all extremities and no focal motor deficits Neuro Narrative: Sleeping but awakens easily and remains oriented only to self Speech: speech normal Psych Psych Narrative: Affect is somewhat flat and patient is intermittently agitated Weight / BMI Weight Weight: 91 kg Body Mass Index (BMI) 24.5 ABG / Lab / Microbiology Data Result Diagrams: 06/18/21 06:40 06/18/21 06:40 Microbiology: Microbiology 06/16/21 15:15 Urine Catheter - Catheter Urine Culture - Final Culture exhibits no growth. 06/16/21 16:53 Blood Culture (Wb) - Anticubital Left Blood Culture - Preliminary No growth in 48 hours. 06/18/21 14:00 Nasal Secretion SARS-CoV-2 Antigen (Rapid) - Final 06/16/21 14:45 Blood Culture (Wb) - Anticubital Right Blood Culture - Preliminary No growth in 48 hours. Meaningful Use Info Meaningful Use Diagnoses (Choose all that apply): None applicable Discharge Plan Admission Admit Date/Time: 06/16/21 16:10 Primary Reason for Your Visit: falls Attending Provider: Kierra Barrow Primary Care Provider: Papito Echevarria Discharge Orders/Prescriptions Prescriptions: New acetaminophen [Tylenol] 325 mg Tablet 650 mg PO Q4H PRN PRN (Reason: Fever, pain 1-10/10) Qty: 0 RF: 0 melatonin 3 mg Tablet 3 mg PO QHS PRN PRN (Reason: Insomnia) Qty: 0 RF: 0 menthol-zinc oxide [Calmoseptine] 0.44-20.6 % Ointment 1 applic topical BID Qty: 0 RF: 0 Continued donepezil 10 mg tablet 10 mg PO QHS RF: 0 sertraline 50 mg tablet 50 mg PO QHS RF: 0 rosuvastatin 10 mg tablet 10 mg PO DAILY RF: 0 memantine 10 mg tablet 10 mg PO BID RF: 0 Referrals / Follow Up: Papito Echevarria MD [Primary Care Provider] - See Referral Note (as needed) Disposition Disposition (needs filled in before D/C Order can be placed): Senior Living Facility Charges/Coding Visit Charges Inpatient E&M: 25111 SNF Disch >30 Min
--- NOTE | 2021-06-19 11:14 | PCM.TXEXTCAR ---
Diet 06/16/21 17:20 Diet: Regular - General Food consistency:: Regular Liquid Consistency:: Regular/Thin Type of Dietary Supplement:: Ensure Compact Is pt able to select menu?: No Routine Orders/Code Status O2 Frequency: PRN Keep PO Greater than or Equal to (%): 92 Code Status: Full Code Wound(s) cheli cleft: Wound Type: Pressure Injury BLE: Wound Type: Abrasion Therapies Weight Bearing: Full weight bearing Extremity Affected:: Bilateral Lower Physical Therapy: Eval and Treat Occupational Therapy: Eval and Treat Problem/Diagnosis (1) Acute hypotension: Status: Acute (2) Hypokalemia: Status: Acute (3) Falls: Status: Acute (4) Elevated lactic acid level: Status: Acute Allergies/Procedures Done in Hospital Allergies No Known Allergies Allergy (Verified 06/16/21 14:42) Procedures: None Type of Care/Length of Stay Estimated LOS: Convalescent Care Less Than 30 days Type of Care Needed: Skilled Rehab Potential: Good Prognosis: Good Additional Orders/Day of Discharge Day of Discharge: 06/19/21 Dietary and Speech Recommendations Dietitian Recommendations/Changes: continue regular diet; will add 120mL ensure compact TID w/ meals for additional calories/protein if consumed Discharge Plan Admission Admit Date/Time: 06/16/21 16:10 Primary Reason for Your Visit: falls Attending Provider: Kierra Barrow Primary Care Provider: Papito Echevarria Discharge Orders/Prescriptions Prescriptions: New acetaminophen [Tylenol] 325 mg Tablet 650 mg PO Q4H PRN PRN (Reason: Fever, pain 1-10/10) Qty: 0 RF: 0 melatonin 3 mg Tablet 3 mg PO QHS PRN PRN (Reason: Insomnia) Qty: 0 RF: 0 menthol-zinc oxide [Calmoseptine] 0.44-20.6 % Ointment 1 applic topical BID Qty: 0 RF: 0 Continued donepezil 10 mg tablet 10 mg PO QHS RF: 0 sertraline 50 mg tablet 50 mg PO QHS RF: 0 rosuvastatin 10 mg tablet 10 mg PO DAILY RF: 0 memantine 10 mg tablet 10 mg PO BID RF: 0 Referrals / Follow Up: Papito Echevarria MD [Primary Care Provider] - See Referral Note (as needed) Disposition Disposition (needs filled in before D/C Order can be placed): Custodial Facility
--- NOTE | 2021-06-19 12:31 | CASEMGMT ---
Social Work Note PAS/RR completed. SISI faxed completed discharge paperwork to [facility] including transfer to extended care facility, signed medication list, any scripts, COVID test/tool, and PAS/RR with PAS/RR Results. Original in SNF folder and copy on pt's chart. SISI spoke with RN, pt to transport via cot. SW to arrange transportation. Plan: [facility] skilled today under PAS/RR level of care Zahra Padilla DATA ACQUISITION TECHNICIAN, TIRE FINISHER
--- NOTE | 2021-06-19 13:30 | CASEMGMT ---
Social Work Note SW accessed trip assist and arranged transportation via cot for 3:00pm. Transportation form completed and placed on SNF folder and copy on pt's chart. SISI updated RN on transportation time. SISI placed a call to [facility] and asked for Nathalie, Cliff states Nathalie is not available. SISI updated Cliff that transportation is arranged for 3:00pm. Cliff states she will update Nathalie. SISI placed a call to pt's Rama and updated her on transportation time and discharge to [facility] today. Rama states understanding. SISI then received call from Nathalie at [facility]. SISI updated Nathalie on transportation time. Plan: [facility] skilled today under PAS/RR level of care with [facility]ician[facility] transporting transporting pt via cot at 3:00pm Zahra FULLER, [employer]
[2021-06-19 14:00] VITALS: BP 112/61; PULSE 76; RESP 16; TEMP 37; O2SAT 97
[2021-06-19 14:38] VITALS: O2SAT 97
== END 2021-06-19 15:05 | disposition skilled nursing facility (03) ==
LOC: ED 16:32 → MS3 16:38
PROVIDERS: Internal Medicine; Admitting Provider Family Medicine; Emergency Provider Emergency Medicine; PCP Family Medicine; Visit Provider Internal Medicine
DX: I95.9 Hypotension, unspecified (principal); F02.81 Dementia in other diseases classified elsewhere, unspecified severity, with behavioral disturbance; G31.9 Degenerative disease of nervous system, unspecified; E87.6 Hypokalemia; F32.A Depression, unspecified; E78.5 Hyperlipidemia, unspecified; R29.6 Repeated falls; F41.9 Anxiety disorder, unspecified; E87.2 Acidosis; E86.0 Dehydration; Z23 Encounter for immunization; Z79.899 Other long term (current) drug therapy; Z87.891 Personal history of nicotine dependence; N40.1 Benign prostatic hyperplasia with lower urinary tract symptoms; N13.8 Other obstructive and reflux uropathy; R62.7 Adult failure to thrive; R94.31 Abnormal electrocardiogram [ECG] [EKG]; R73.9 Hyperglycemia, unspecified; Z87.19 Personal history of other diseases of the digestive system
CPT/HCPCS: 36415; 70450; 71045; 80048; 80053; 81001; 82533; 83036; 83605; 83735; 84100; 84145; 84484; 85025; 85610; 85730; 87040; 87086; 87426; 93005; 96360; 96361; 96372; 97162; 97166; 99218; 99285; G0008; J7030; 90686; A4216; G0378

== ENCOUNTER → 2021-08-15 | Outpatient (CLI) | payer MEDICARE, OTHER, SELFPAY ==
[2021-08-15 15:25] LABS: Absolute Lymphocyte Count 1.44 X10^3/uL (0.83-4.51); Absolute Neutrophil Count 4.9 X10^3/uL (2.0-7.7); Basophil# 0.01 X10^3/uL; Basophil% 0.1 % (0-1); Eosinophil# 0.03 X10^3/uL; Eosinophils% 0.4 % (0-5); Hematocrit 49.2 % (40-54); Hemoglobin 16.5 g/dL (13.0-16.5); Lymphocyte # 1.44 X10^3/ul (0.83-4.51); Lymphocyte % 20.6 % (19-41); Mean Corp Hgb Conc 33.5 g/dL (32-36); Mean Corpuscular Hgb 29.7 pg (27.0-32.0); Mean Corpuscular Volume 88.6 fL (80-94); Mean Platelet Vol. 8.5 fl (6.2-12.0); Monocyte# 0.57 X10^3/uL; Monocyte% 8.2 % (0-10); NRBC Flagged by Analyzer 0 % (0-5); Neutrophil # 4.91 X10^3/uL (2.7-7.7); Neutrophil % 70.3 % (47-70); Platelet Count 250 K/mm3 (150-450); RBC Distribution Width CV 13.5 % (11.6-14.6); RBC Distribution Width SD 43.9 fl (35.1-43.9); Red Blood Count 5.55 M/mm3 (4.6-6.2)
[2021-08-15 15:39] LABS: Vitamin B12 549 pg/mL (211-911)
[2021-08-15 15:55] LABS: AST(SGOT) 17 U/L (15-37); Alanine Aminotransfer ALT/SGPT 25 U/L (16-61); Albumin, Serum 3.5 g/dL (3.2-5.0); Alkaline Phosphatase 86 U/L (45-117); Anion Gap 4 (5-15); BUN 15 mg/dL (7-18); BUN/Creat Ratio 18.3 RATIO (10-20); Bilirubin, Direct 0.25 mg/dL (0.00-0.30); Calcium,Total 9.4 mg/dL (8.5-10.1); Chloride 105 mmol/L (98-107); Cholesterol 150 mg/dL (200); Creatinine, Serum 0.82 mg/dL (0.70-1.30); EST Glomerular Filtration Rate 98 mL/min (>60); Est Glom Filt Rate - Afr Amer 119 mL/min (>60); Globulin 3.5 g/dL (2.2-4.2); Glucose 84 mg/dL (74-106); High Density Lipoprotein 57 mg/dL; Potassium 3.8 mmol/L (3.5-5.1); Sodium Level 139 mmol/L (136-145); Thyroid Stim Hormone (TSH) 1.52 uIU/mL (0.358-3.74); Triglycerides 84 mg/dL; Very Low Density Lipoprotein 17 mg/dL (5-40)
== END | disposition home or self-care (01) ==
LOC: MFPLAB 11:43
PROVIDERS: PCP Family Medicine; Referring Provider Family Medicine; Visit Provider Family Medicine
DX: E78.5 Hyperlipidemia, unspecified (principal); F03.90 Unspecified dementia, unspecified severity, without behavioral disturbance, psychotic disturbance, mood disturbance, and anxiety; R17 Unspecified jaundice
CPT/HCPCS: 36415; 80048; 80061; 80076; 82607; 84443; 85025

== ENCOUNTER 2021-09-06 20:50 | Emergency (ER) | payer MEDICARE, OTHER, SELFPAY ==
[2021-09-06 20:51] VITALS: BP 136/73; PULSE 73; RESP 27; TEMP 36.6; O2SAT 98; BMI 27.6
--- NOTE | 2021-09-06 21:26 | EKG12_ITS ---
Test Reason : DYSRHYTHMIA Blood Pressure : / mmHG Vent. Rate : 065 BPM Atrial Rate : 065 BPM P-R Int : 208 ms QRS Dur : 092 ms QT Int : 418 ms P-R-T Axes : 062 057 050 degrees QTc Int : 434 ms Sinus rhythm with occasional Premature ventricular complexes Otherwise normal ECG When compared with ECG of 16-JUN-2021 15:08, Premature ventricular complexes are now Present Nonspecific T wave abnormality no longer evident in Lateral leads Confirmed by JEMIMA DE LA GARZA, KAYCEE ([id number]), magazine editor CORAZON GONSALES ([id number]) on 09/10/2021 12:59:11 PM Referred By: MAURY Confirmed By:KAYCEE ONOFRE MD
--- NOTE | 2021-09-06 21:26 | EDS_ITS ---
HPI HPI - Fall History of Present Illness Chief Complaint: Fall Informant: patient and spouse/S.O. Occured/Mechanism Occurred: Today Mechanism/Context: Yes same level fall Usually ambulates: Without assistance Associated Symptoms Associated Symptoms: Negative for Parasthesias, Weakness, Inability to ambulate, Loss of consciousness and Amnesia Narrative Narrative: 70-year-old male history of dementia. Was at home and fell along the hill side. Was unwitnessed. When he was found down they questioned if something happened before the fall. Currently he has no complaints. Waisted initially was complained of some back discomfort which is seem to have resolved. He has had no recent illness. No recent nausea, vomiting or diarrhea. No fever. He denies any headache or head injury. He is not on blood thinners. Prior similar symptoms: Yes Recent Illness/Hospitalization: No PFSH PFSH Medical History Anxiety BPH (benign prostatic hyperplasia) Dementia with behavioral disturbance Depression Falls Hyperlipidemia Home Medications donepezil 10 mg PO QHS 06/16/21 [History Last Taken 06/14/21] memantine 10 mg PO BID 06/16/21 [History Last Taken 06/14/21] rosuvastatin 10 mg PO DAILY 06/16/21 [History Last Taken 06/14/21] sertraline 50 mg PO QHS 06/16/21 [History Last Taken 06/14/21] acetaminophen [Tylenol] 650 mg PO Q4H PRN PRN #0 tab 06/19/21 [Rx Last Taken Unknown] melatonin 3 mg PO QHS PRN PRN #0 tab 06/19/21 [Rx Last Taken Unknown] menthol-zinc oxide [Calmoseptine] 1 applic TOPICAL BID #0 g 06/19/21 [Rx Last Taken Unknown] Allergy/AdvReac Type Severity Reaction Status Date / Time No Known Allergies Allergy Verified 06/16/21 14:42 Family History Father Alzheimer disease Mother CVA (cerebral vascular accident) Heart disease Surgical History History of bladder surgery History of tonsillectomy S/P ERCP S/P laparoscopic cholecystectomy S/P prostatectomy Social History household members: spouse Smoking Status: Never smoker alcohol intake: never substance use type: does not use ROS ROS ED ROS Narrative Per his no recent illness. He does have dementia. Review of Systems ROS Unobtainable: due to mental status; Denies due to encephalopathy Constitutional Constitutional ED: Denies fever(s) Eyes Eyes: Denies change in vision ENT ENT ED: Denies ear pain Cardiovascular Cardiovascular: Denies chest pain Respiratory/Chest Respiratory/Chest: Denies dyspnea Gastrointestinal Gastrointestinal: Denies abdominal pain, diarrhea, nausea or vomiting Genitourinary Genitourinary ED: Denies dysuria Musculoskeletal Musculoskeletal: Denies myalgias Integumentary Denies rash Neurologic Neurologic: Denies headache(s) Psychiatric Psychiatric: Denies depression Endocrine Endocrinology: Denies polyuria Hematologic/Lymphatic Hematologic/Lymphatic: Denies easy bruising Allergic/Immunologic Allergic/Immunologic ED: Denies urticaria EXAM Physical Exam Narrative Exam Narrative: Well-appearing 70-year-old male. C-collared. H EENT exam. Lightish motions are intact. Is no signs of facial trauma. No scalp hematomas or tenderness. No lacerations. Trachea midline. C-spine completely nontender. C-collar was removed. Back nontender. Thoracic and lumbar spine nontender. No signs of trauma. No bruising. No abrasions. Pelvic girdle intact. Lungs clear to auscultation bilaterally. Heart regular rate and rhythm rate about 70. Chest wall rib cage nontender. Abdomen soft nontender no bruising. No peritoneal signs. Moving all 4 extremities. 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 Dorsi plantarflexion intact. Neurologically is awake. He is alert. He answers questions and follows commands. He does have dementia. And this is his baseline confusion. is at bedside. Const Vital Signs: 09/06/21 20:51 Temperature 97.8 F Temperature Source Temporal Pulse Rate 73 Respiratory Rate 27 H Respiratory Effort Normal Respiratory Depth Normal Respiratory Pattern Normal Blood Pressure 136/73 H Blood Pressure Mean 94 Pulse Ox 98 Oxygen Delivery Method Room Air Positive well nourished and well developed; Negative for obese, cachectic, contractures or unkempt General Appearance ED: well developed and NAD; Negative for unkempt, cachectic or contractures Nutritional Appearance: Negative for cachectic or obese HEENT Reports normocephalic atraumatic; Negative for trauma, contusion, hematoma or tenderness Eyes PERRL and EOMs intact bilaterally General Eye ED: Negative for pale conjunctiva or scleral icterus Neck full ROM, no lymphadenopathy and No supple General: Negative for tenderness Chest Wall inspection of chest normal and palpation of chest normal Resp normal respiratory effort, no retractions and clear to auscultation bilaterally Auscultation: Negative for rales, rhonchi or wheezes Cardio regular rate, regular rhythm, S1 normal heart sound, S2 normal heart sound and no murmurs GI non-tender, non-distended and no masses Inspection: Negative for abdominal distention Auscultation: normoactive bowel sounds Palpation: soft; Negative for guarding or rebound tenderness present Rectal Exam: Negative for heme negative stool Back/Spine no CVA tenderness General Back: Negative for CVA tenderness Cervical Spine: Negative for cervical spine tenderness Thoracic Spine / Upper Back: Negative for thoracic spinal tenderness Lumbar Spine / Lower Back: Negative for lumbar spinal tenderness or paraspinal muscle tenderness Extremity normal to inspection and full ROM Neuro No oriented x3, moves all extremities and no focal motor deficits Sensorium / Orientation: alert, oriented to person and confused; Negative for lethargic or stuporous Psych mental status grossly normal and thought process normal Appearance: Negative for unkempt Attitude: No agitated Mood & Affect: Negative for depressed or tearful Skin Lesions: no lesions and No lesion noted Rashes: no rashes and No rashes noted Trauma: Negative for abrasion or laceration MDM MDM MDM Narrative Medical decision making narrative: 70-year-old male with dementia that had a fall. Exam benign. I will get screening labs and EKG. He has had multiple CAT scans in the last several months. I do not think that needs to be repeated. He has no signs of head trauma. He is not on a blood thinner. Repeat exam patient is doing well at 10:34 PM. He ambulated to the bathroom earlier without any difficulty. His repeat exam is unremarkable. He will be discharged to home. Lab Data Attestation: I reviewed the patient's lab results. Lab results narrative: CBC shows a white count 8. H&H is 16 and 48. Platelets 250. Electrolytes unremarkable gap is 7 normal BUN and creatinine. Glucose 121. Labs: Laboratory Results - last 24 hr 09/06/21 09/06/21 21:43 21:43 WBC 8.9 RBC 5.61 Hgb 16.7 H Hct 48.5 MCV 86.5 MCH 29.8 MCHC 34.4 RDW Std Deviation 41.0 RDW Coeff of Brandee 13.0 Plt Count 250 MPV 8.4 Immature Gran % (Auto) 0.300 Neut % (Auto) 67.6 Lymph % (Auto) 23.3 Clare % (Auto) 8.2 Eos % (Auto) 0.4 Baso % (Auto) 0.2 Absolute Neuts (auto) 6.0 Absolute Lymphs (auto) 2.08 Nucleated RBC % 0 Sodium 140 Potassium 3.7 Chloride 104 Carbon Dioxide 29.0 Anion Gap 7 BUN 17 Creatinine 1.00 Estim Creat Clear Calc 79.81 Est GFR (MDRD) Af Amer 94 Est GFR (MDRD) Non-Af 78 BUN/Creatinine Ratio 17.0 Glucose 121 H Calcium 9.5 Rhythm Strip Rhythm Strip: Sinus Rhythm Rate: 65 Ectopy: PVC(s) EKG Initial EKG: Attestation: I personally reviewed and interpreted this EKG as follows: Interpretation: Sinus Rhythm and No Acute Injury Pattern Comments: Sinus rhythm 65. Occasional PVCs. Otherwise no acute abnormality. Discharge Plan Triage Chief Complaint: Fall ED Provider: Efren Gudino Dx/Rx/DC Orders Clinical Impression: Fall, History of dementia Instructions: ED Mechanical Fall Prescriptions: No Action donepezil 10 mg tablet 10 mg PO QHS RF: 0 sertraline 50 mg tablet 50 mg PO QHS RF: 0 rosuvastatin 10 mg tablet 10 mg PO DAILY RF: 0 memantine 10 mg tablet 10 mg PO BID RF: 0 acetaminophen [Tylenol] 325 mg Tablet 650 mg PO Q4H PRN PRN (Reason: Fever, pain 1-01/28) Qty: 0 RF: 0 melatonin 3 mg Tablet 3 mg PO QHS PRN PRN (Reason: Insomnia) Qty: 0 RF: 0 menthol-zinc oxide [Calmoseptine] 0.44-20.6 % Ointment 1 applic topical BID Qty: 0 RF: 0 Primary Care Provider: Papito Echevarria Referrals: Papito Echevarria MD [Primary Care Provider] - As Needed Activity Restrictions/Additional Instructions: His exam and labs today were unremarkable. He does not need to be admitted to the hospital. Follow-up with his doctor as needed. Return if he is feeling worse. Disposition Disposition: Home, Self Care
[2021-09-06 21:51] LABS: Absolute Lymphocyte Count 2.08 X10^3/uL (0.83-4.51); Basophil# 0.02 X10^3/uL; Basophil% 0.2 % (0-1); Eosinophil# 0.04 X10^3/uL; Eosinophils% 0.4 % (0-5); Hematocrit 48.5 % (40-54); Hemoglobin 16.7 g/dL (13.0-16.5); Lymphocyte # 2.08 X10^3/ul (0.83-4.51); Lymphocyte % 23.3 % (19-41); Mean Corp Hgb Conc 34.4 g/dL (32-36); Mean Corpuscular Hgb 29.8 pg (27.0-32.0); Mean Corpuscular Volume 86.5 fL (80-94); Mean Platelet Vol. 8.4 fl (6.2-12.0); Monocyte# 0.73 X10^3/uL; Monocyte% 8.2 % (0-10); NRBC Flagged by Analyzer 0 % (0-5); Neutrophil # 6.04 X10^3/uL (2.7-7.7); Neutrophil % 67.6 % (47-70); Platelet Count 250 K/mm3 (150-450); Red Blood Count 5.61 M/mm3 (4.6-6.2); White Blood Count 8.9 K/mm3 (4.4-11.0)
[2021-09-06 22:03] LABS: Anion Gap 7 (5-15); BUN 17 mg/dL (7-18); Calcium,Total 9.5 mg/dL (8.5-10.1); Chloride 104 mmol/L (98-107); EST Glomerular Filtration Rate 78 mL/min (>60); Est Glom Filt Rate - Afr Amer 94 mL/min (>60); Estimated Creatinine Clearance 79.81 ml/min; Glucose 121 mg/dL (74-106); Potassium 3.7 mmol/L (3.5-5.1); Sodium Level 140 mmol/L (136-145)
== END 2021-09-06 22:43 | disposition home or self-care (01) ==
PROVIDERS: Emergency Provider Emergency Medicine; PCP Family Medicine; Visit Provider Emergency Medicine
DX: Z04.3 Encounter for examination and observation following other accident (principal); F02.80 Dementia in other diseases classified elsewhere, unspecified severity, without behavioral disturbance, psychotic disturbance, mood disturbance, and anxiety; E78.5 Hyperlipidemia, unspecified; Z79.899 Other long term (current) drug therapy
CPT/HCPCS: 80048; 85025; 93005; 99285; A4216

== ENCOUNTER → 2021-12-14 | Outpatient (CLI) | payer MEDICARE, OTHER, SELFPAY ==
[2021-12-14 14:58] LABS: Absolute Lymphocyte Count 1.56 X10^3/uL (0.83-4.51); Absolute Neutrophil Count 9.8 X10^3/uL (2.0-7.7); Basophil# 0.02 X10^3/uL; Basophil% 0.2 % (0-1); Eosinophil# 0.05 X10^3/uL; Eosinophils% 0.4 % (0-5); Hematocrit 54.2 % (40-54); Lymphocyte # 1.56 X10^3/ul (0.83-4.51); Lymphocyte % 12.6 % (19-41); Mean Corp Hgb Conc 35.1 g/dL (32-36); Mean Corpuscular Hgb 30.3 pg (27.0-32.0); Mean Corpuscular Volume 86.4 fL (80-94); Mean Platelet Vol. 8.8 fl (6.2-12.0); Monocyte# 0.83 X10^3/uL; Monocyte% 6.7 % (0-10); NRBC Flagged by Analyzer 0 % (0-5); Neutrophil # 9.84 X10^3/uL (2.7-7.7); Neutrophil % 79.6 % (47-70); Platelet Count 340 K/mm3 (150-450); RBC Distribution Width CV 13.1 % (11.6-14.6); RBC Distribution Width SD 41.4 fl (35.1-43.9); Red Blood Count 6.27 M/mm3 (4.6-6.2); White Blood Count 12.4 K/mm3 (4.4-11.0)
[2021-12-14 15:17] LABS: AST(SGOT) 20 U/L (15-37); Alanine Aminotransfer ALT/SGPT 32 U/L (16-61); Albumin, Serum 3.6 g/dL (3.2-5.0); Alkaline Phosphatase 122 U/L (45-117); Anion Gap 10 (5-15); BUN 17 mg/dL (7-18); BUN/Creat Ratio 16.7 RATIO (10-20); Bilirubin, Direct 0.28 mg/dL (0.00-0.30); Calcium,Total 9.6 mg/dL (8.5-10.1); Chloride 100 mmol/L (98-107); Cholesterol 221 mg/dL (200); Creatinine, Serum 1.02 mg/dL (0.70-1.30); EST Glomerular Filtration Rate 76 mL/min (>60); Est Glom Filt Rate - Afr Amer 92 mL/min (>60); Globulin 4.2 g/dL (2.2-4.2); Glucose 95 mg/dL (74-106); High Density Lipoprotein 45 mg/dL; Potassium 3.7 mmol/L (3.5-5.1); Prealbumin 15.9 mg/dL (20.0-40.0); Protein, Total 7.8 g/dL (6.4-8.2); Sodium Level 137 mmol/L (136-145); Triglycerides 101 mg/dL; Very Low Density Lipoprotein 20 mg/dL (5-40)
[2021-12-17 15:27] LABS: Pathologist Review Reviewed
== END | disposition home or self-care (01) ==
LOC: MFPLAB 11:21
PROVIDERS: PCP Family Medicine; Referring Provider Family Medicine; Visit Provider Family Medicine
DX: E78.5 Hyperlipidemia, unspecified (principal); R17 Unspecified jaundice; R62.7 Adult failure to thrive
CPT/HCPCS: 36415; 80048; 80061; 80076; 84134; 85025